=== PATIENT | female | born 1970 | race Caucasian/White ===

== ENCOUNTER → 2017-11-06 08:10 | Outpatient (CLI) | payer OTHER, SELFPAY ==
--- NOTE | 2017-11-06 08:16 | MM_ITS ---
MM Dig screening mamm BI w/CAD ORDERING PHYSICIAN : Heriberto Mayen MD PATIENT AGE: 47 years GENDER: Female COMPARISON: October 2014 and February 2010 bilateral mammogram INDICATION: ITS.REASON: SCREENING Family history Mother with breast cancer in her 60s TECHNIQUE: Standard CC and MLO images were obtained. R2 CAD reviewed. FINDINGS: The patient demonstrates areas of dense breast tissue bilaterally mammography is decreased sensitivity in breast of areas of increased density. Dense Breast tissue most evident towards lateral breast at upper-outer quadrant RIGHT BREAST:No no discrete findings. Only question a vague ovoid density labeled a at the lateral left breast. Labeled A. Doubt significance but would suggest ultrasound to further survey in this dense breast. Particularly in view of positive family history LEFT BREAST:There is suggestion of vague round density at the lateral left breast on cc view. Unlikely up to at least 12 mm diameter. Suspect persist the Ultrasound suggested to further survey both right and left breast given the dense breasts character and thus . There is also some small calcifications seen at or just beneath the skin towards the upper outer quadrant left breast. These could be within the skin, thus tangent and magnification views suggested here as well in the patient returns.. IMPRESSION 1. Dense breast bilaterally decreased sensitivity mammography.. Bilateral breast ultrasound suggested 2. Left breast. ... Suspect vague ovoid density laterally labeled X .Possible cyst. This & other areas of dense breast tissue would benefit from ultrasound survey ... Small cluster of likely benign punctate calcifications just at or beneath the skin upper-outer quadrant left breast. Recommend tangential and magnification views here, when patient returns as well (area labeled Z) 3. Right breast. ... Diffusely dense breast only questionable area at the medial breast on cc view. But survey ultrasound left breast but breast recommended as well to further evaluate areas of density. BI-RADS Category: 0 Need Additional Imaging Evaluaiton . RECOMMENDED FOLLOW-UP: IMM - IMMEDIATE FOLLOW-UP RECOMMENDED (A letter has been sent to the patient regarding results of the study.)
== END ==
PROVIDERS: Family Provider Family Medicine; PCP Family Medicine; Visit Provider Family Medicine
DX: Z12.31 Encounter for screening mammogram for malignant neoplasm of breast (principal)
CPT/HCPCS: 77067

== ENCOUNTER → 2017-11-25 12:41 | Outpatient (CLI) | payer OTHER, SELFPAY ==
--- NOTE | 2017-11-25 12:49 | US_ITS ---
MM Dig spot mag LT, US breast RT complete, US breast LT complete INDICATION: Follow-up abnormal screening study ORDERING PHYSICIAN: Heriberto Mayen MD PATIENT AGE: 47 years COMPARISON: 11/06/2017, 11/03/2014 TECHNIQUE: Magnification views and spot compression views along with bilateral breast ultrasound FINDINGS: There is dense fibroglandular tissue which decreases the sensitivity of mammography. The calcifications in the upper aspect of the left breast do not appear to be within the skin and are suspicious. Stereotactic directed biopsy is suggested. There are benign-appearing calcifications in the left breast as well. There is an area of asymmetric density in the outer aspect of the left breast. This does not appear to compress out but has a benign appearance. Left breast ultrasound: 3 mm cyst at 1:00, 7 mm cyst at 2:00, 1.7 x 1.5 cm cyst at 3:00 corresponding to the mammographic abnormality. 4 mm cyst at 6:00.. IMPRESSION: Suspicious calcifications in the upper outer left breast. Stereotactic biopsy suggested Asymmetric density left retroareolar region corresponds to a cyst BI-RADS Category: 4 Suspicious Abnormality-Biopsy Considered RECOMMENDED FOLLOW-UP: BIO - BIOPSY RECOMMENDED (A letter has been sent to the patient regarding results of the study.)
--- NOTE | 2017-11-25 16:02 | XR_ITS ---
XR chest 2V HISTORY: ITS.REASON: COUGH,SHORTNESS OF BREATH ORDERING PHYSICIAN: Heriberto Mayen MD PATIENT AGE: 47 years COMPARISON: 01/17/2009 FINDINGS: The cardiomediastinal silhouette and pulmonary vascularity are within normal limits. The lungs are clear without infiltrates, suspicious nodules, or pleural effusions. There is mild pectus deformity No acute bony abnormalities. IMPRESSION: No change with no acute finding
== END ==
PROVIDERS: PCP Family Medicine; Visit Provider Family Medicine
DX: R92.2 Inconclusive mammogram (principal)
CPT/HCPCS: 71046; 76641; 77065

== ENCOUNTER → 2017-12-02 10:34 | Outpatient (CLI) | payer OTHER, SELFPAY ==
--- NOTE | 2017-12-02 | MM_ITS ---
MM clip placement LT, MM stereotactic loc LT ORDERING PHYSICIAN: Manolo Beltre MD PATIENT AGE: 47 years Comparison: 11/25/2017 HISTORY: Breast calcifications PROCEDURE: The patient was given 1 mg of Xanax. The patient was placed on the stereotactic table and the abnormality was localized in the most appropriate projection. The breast was prepped in the routine manner, with sterile prep and the overlying skin anesthetized. A 3 to 4 mm skin incision was performed and the 9 gauge sorus vacuum-assisted core biopsy needle was advanced to the region of the calcification. Pre- and post fire images were obtained. After adequate positioning relative to the calcifications was ensured, multiple biopsies were obtained in the region of the calcifications specifically. The core biopsies obtained were sent for specimen mammography. After the calcifications were indeed identified on the specimen mammogram, the procedure was terminated. The patient tolerated the procedure well without complications. Specimen was sent for pathologic analysis which should be forthcoming within 3 working days. Routine follow-up phone call to patient is to be performed as well. A tiny titanium nonferromagnetic MicroMark was positioned through the mammotome needle into the biopsy site. 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 Excisional biopsy is recommended. SPECIMEN RADIOGRAPH: The mammographically evident calcifications from the prior study are currently evident within the Purnima dish and within the specimens obtained during mammotome procedure. This is considered an adequate specimen and the procedure was terminated. IMPRESSION: Successful removal of described breast calcifications. Left BREAST MAMMOGRAM: Compared to the prior study, the previously noted calcification have been removed. A small MicroMark clip was inserted into the region of the calcifications. There is evidence of soft tissue changes in the region of the biopsy was soft tissue gas and edema. IMPRESSION: 1. Adequate placement of the MicroMark clip postbiopsy. Management 2. Postbiopsy changes within the leftbreast. OVERALL ASSESSMENT: THE CALCIFICATIONS WITHIN THE LEFT BREAST DEMONSTRATES ATYPICAL DUCTAL HYPERPLASIA. EXCISIONAL BIOPSY IS RECOMMENDED
== END ==
PROVIDERS: PCP Family Medicine; Visit Provider Family Medicine
DX: R92.8 Other abnormal and inconclusive findings on diagnostic imaging of breast (principal)
CPT/HCPCS: 19081; 77065

== ENCOUNTER → 2018-08-23 13:51 | Outpatient (CLI) | payer OTHER, SELFPAY ==
[2018-08-23 14:30] VITALS: PULSE 73; PULSE 75
== END ==
PROVIDERS: PCP Family Medicine; Visit Provider Family Medicine
DX: R06.02 Shortness of breath (principal)
CPT/HCPCS: 94060; 94640

== ENCOUNTER → 2018-12-06 16:14 | Outpatient (CLI) | payer OTHER, SELFPAY ==
--- NOTE | 2018-12-06 16:17 | MM_ITS ---
PROCEDURE: MM DIG SCREENING MAMM BI W/CAD Patient Age:48Y CLINICAL INDICATION: SCREENING 48-year-old but no hormones no new complaints Family history: Mother breast cancer age 60 COMPARISON: DMDBAV DIG MAMM-DX BILAT W/ADD VIEWS from 02/14/2010 DMDB DIG MAMM-DX SANAZ from 11/03/2014 BR US BREAST-RT COMPLETE W/AXILLA from 11/03/2014 [facility] MM Dig screening mamm BI w/CAD from 11/06/2017 BREASTLT US breast LT complete from 11/25/2017 MAGLT MM Dig spot mag LT from 11/25/2017 CLIPLT MM clip placement LT from 12/02/2017 TECHNIQUE: Standard CC and MLO images were obtained. R2 CAD reviewed. FINDINGS: Moderate heterogeneous asymmetric breast pattern bilaterally, with areas of dense fibroglandular elements-. Decreased sensitivity of mammography within these areas of denser breast tissue Right breast: No new area of significant concern. Stable asymmetric areas of density. No discrete dominant new mass-again nodular difficult evaluate breast but follow-up 1 year on the right adequate. Left breast: Round density at the lateral left breast.. This is located towards 3 o'clock position is more evident on today's study-This likely reflects a cyst with at measuring over 13 mm AP x 17 mm height. (This is labeled X.). A cyst was previously identified at 3 o'clock on the previous 2018 ultrasound would seem to be likely account for this density; but I would suggest a follow-up since appears more evident and larger on today's MLO view. Superior to this on MLO view is a a nearly 9 mm round area which suspect reflect a probable cyst as well. IMPRESSION: LEFT mammogram Recommend ultrasound left breast along with spot views left breast (. Spot MLO, CC spot view along with full 90 degree view left breast) Slight progression, & enlargement of round density lateral left breast towards 3 o'clock, now measuring up to 17 mm height-suspect most likely enlarging cyst (cyst near this size at 3 o'clock position noted on 2018 ultrasound left breast) 9 mm round density superior to this on the MLO view. Likely a large cyst. Recommend ultrasound to further evaluate left breast additional axillary CC view right breast included RIGHT mammogram.: Follow-up 1 year Dense heterogeneous breast but overall appear stable with no significant new areas of concern BI-RAD Category: 0 Need Additional Imaging Evaluation FOLLOW-UP: IMM Immediate Follow-up Recommended (A letter has been sent to the patient regarding results of the study.) Dictated by: Luis Daniel Coyne MD 12/06/2018 19:30 Electronically signed by Luis Daniel Coyne MD in [place] 12/06/2018 19:32
== END ==
PROVIDERS: PCP Family Medicine; Visit Provider Family Medicine
DX: Z12.31 Encounter for screening mammogram for malignant neoplasm of breast (principal)
CPT/HCPCS: 77067

== ENCOUNTER → 2018-12-20 12:56 | Outpatient (CLI) | payer OTHER, SELFPAY ==
--- NOTE | 2018-12-20 13:00 | MM_ITS ---
PROCEDURE: MM DIG MAMM DX UNILAT LT CAD CLINICAL INDICATION: ABNORMAL MAMM COMPARISON: BREASTLT US breast LT complete from 11/25/2017 MAGLT MM Dig spot mag LT from 11/25/2017 CLIPLT MM clip placement LT from 12/02/2017 MM DIG SCREENING MAMM BI W/CAD from 12/06/2018 US BREAST LT COMPLETE from 12/20/2018 TECHNIQUE: Problem solving views of the left breast along with left breast ultrasound FINDINGS: Left mammogram: Average fibroglandular tissue. There is a rounded obscured nodule measuring 15 by 15 mm in the outer aspect of the left breast around the 3 o'clock position. There are benign-appearing calcifications laterally. Previously noted asymmetric density superior to this nodule appears to partially compress out having a similar appearance compared to 11/25/2017. Left breast ultrasound: At 1 o'clock there is a 5 mm cyst. At 2 o'clock there is a 7 mm cyst. At 3 o'clock there is a bilobular hypoechoic area measuring 2.6 by 2 cm. This has increased in size compared to 12/02/2017 and now has a bilocular component. This is hypoechoic and well-circumscribed with some enhanced through transmission of sound. There are low level internal echoes. There is a 6 mm cyst at 3 o'clock and an indeterminate 4 mm hypoechoic nodule at 6 o'clock. IMPRESSION: Enlarging hypoechoic bilobular lesion at 2 o'clock. This does have low level internal echoes. Due to the increase in size, would recommend biopsy.. Ultrasound-guided mammotome biopsy suggested. BI-RAD Category: 4 Suspicious Abnormality - Biopsy Considered FOLLOW-UP: BIO Biopsy Recommended (A letter has been sent to the patient regarding results of the study.) Dictated by: Kevon Reis MD 12/24/2018 12:51 Electronically signed by Kevon Reis MD in [place] 12/24/2018 12:54
== END ==
PROVIDERS: PCP Family Medicine; Visit Provider Family Medicine
DX: R92.8 Other abnormal and inconclusive findings on diagnostic imaging of breast (principal)
CPT/HCPCS: 76641; 77065

== ENCOUNTER → 2019-01-11 12:31 | Outpatient (CLI) | payer OTHER, SELFPAY ==
--- NOTE | 2019-01-11 13:14 | MM_ITS ---
PROCEDURE: MM DIG MAMM DX UNILAT LT CAD the CLINICAL INDICATION: BREAST MASS, follow-up cyst aspiration COMPARISON: CLIPLT MM clip placement LT from 12/02/2017 MM DIG SCREENING MAMM BI W/CAD from 12/06/2018 MM DIG MAMM DX UNILAT LT CAD from 12/20/2018 TECHNIQUE: Standard CC and MLO images were obtained. R2 CAD reviewed. FINDINGS: Dense fibroglandular tissue. Previously noted 15 mm nodule in the upper outer aspect of the left breast is no longer apparent having been aspirated. Biopsy clip is present in the upper outer aspect of the left breast.. Suggest 6 month follow-up per routine post biopsy protocol IMPRESSION: Benign findings. No evidence of malignancy BI-RAD Category: 2 Benign Finding(s) FOLLOW-UP: 6M 6Month Follow-up (A letter has been sent to the patient regarding results of the study.) Dictated by: Kevon Reis MD 01/18/2019 10:02 Electronically signed by Kevon Reis MD in [place] 01/18/2019 10:02
--- NOTE | 2019-01-11 13:14 | US_ITS ---
PROCEDURE: US FNA BREAST CLINICAL INDICATION: BREAST MASS COMPARISON: US BREAST LT COMPLETE from 12/20/2018 FINDINGS: There is a bilobed or bi lobular nodule at 3 o'clock in the right breast as previously described. This was targeted for ultrasound. Following time-out and obtaining informed consent under aseptic conditions and local anesthesia with 1 percent buffered lidocaine, 21 gauge needle was inserted into the larger of the 2 collections. A small amount somewhat thick creamy fluid was aspirated and sent to cytology. This was labeled as 2 o'clock. Adjacent to this was an additional collection which was aspirated at 3 o'clock both sent to cytology in both nearly completely aspirated. Cytology 2 o'clock: Negative for malignant cells Cytology 3 o'clock, negative for malignant cells both suggestive cysts with occasional macrophages. No atypia or malignancy evident. IMPRESSION: Status post FNA of the 2 suspicious nodules at 2 and 3 o'clock both showing benign findings. Dictated by: Kevon Reis MD 01/18/2019 09:58 Electronically signed by Kevon Reis MD in [place] 01/18/2019 09:58
== END ==
PROVIDERS: PCP Family Medicine; Visit Provider Family Medicine
DX: D48.62 Neoplasm of uncertain behavior of left breast (principal)
CPT/HCPCS: 10005; 76942; 77065

== ENCOUNTER 2020-08-14 10:07 | Emergency (ER) | payer OTHER, SELFPAY ==
[2020-08-14] VITALS (9 sets, daily range): BP systolic 97–127; BP diastolic 53–82; PULSE 67–85; RESP 16–20; TEMP 36.6–36.9; O2SAT 97–98; BMI 22.0
--- NOTE | 2020-08-14 10:14 | ECG_ITS ---
APPROVED REPORT Exam: Resting ECG HR:73 bpm ECG Measurements Heart Rate 73 AXES OK 122 P 87 QRSd 80 QRS 78 QT 376 T 61 QTc 414 Conclusion Normal sinus rhythm Late r wave progression Abnormal ECG Electronically signed by : Rishabh Daniel, 08/14/2020 19:49:26
--- NOTE | 2020-08-14 10:22 | XR_ITS ---
PROCEDURE: XR CHEST PORTABLE CLINICAL HISTORY: chest pain COMPARISON: DX CXR2V XR chest 2V from 11/25/2017 FINDINGS: The cardiomediastinal silhouette and pulmonary vascularity are within normal limits. The lungs are clear without infiltrates, suspicious nodules, or pleural effusions. Minimal upper thoracic curvature convex left and lower thoracic curvature convex right IMPRESSION: No acute findings. Dictated by: Kevon Reis MD 08/14/2020 11:00 Kevon Reis MD in [place] 08/14/2020 11:00
[2020-08-14 10:31] LABS: Basophils % 0.4 % (0.1-2.0); Eosinophils # 0.2 K/mm3 (0.0-0.4); Eosinophils % 4.1 % (0.1-12.0); Hematocrit 39.7 % (37.0-47.0); Lymphocytes # 1.2 K/mm3 (0.7-4.5); Lymphocytes % 23.1 % (10-50); Mean Corpuscular HGB Conc 32.9 g/dL (31.8-35.4); Mean Corpuscular Volume 91.2 fl (81-99); Mean Platelet Volume 9.3 fl (7.4-10.4); Monocytes # 0.2 K/mm3 (0.1-1.0); Monocytes % 4.9 % (1.7-9.3); Neutrophils # 3.3 K/mm3 (1.8-7.8); Neutrophils % 67.5 % (37.0-80.0); Platelet Count 172 K/mm3 (142-424); Red Blood Count 4.35 M/mm3 (4.20-5.40); Red Cell Distribution Width 12.6 % (11.5-17.5)
--- NOTE | 2020-08-14 10:36 | HMH.EDGENADL ---
ED Disposition Clinical Impression: Chest pain, atypical Disposition: Home, Self-Care Condition on Discharge: Fair Instructions: DI for Atypical Chest Pain Additional Instructions: Activity as tolerated bland diet if symptoms recur return to emergency room for further evaluation otherwise follow-up with cardiology as directed. Follow up with Cardiology office 08/16/20 () at 9am Referrals: Heriberto Mayen MD [Primary Care Provider] - Time of Disposition: 13:41 - Critical Care Critical Care Time: No Attestation: On 08/14/20, the high probability of a clinically significant, sudden or life threatening deterioration of the following system(s) required my full and direct attention, intervention and personal management. The time I documented below is in addition to time spent performing reported procedures but includes the following listed in this critical care notation. Medical Decision Making - Medical Records Medical records reviewed: Yes: I reviewed the patient's medical records. - Rk Inquiry Pt receiving controlled substance: No Vital Signs: 08/14/20 10:08 08/14/20 10:30 08/14/20 11:00 Temperature 98.5 F Temperature Source Oral Pulse Rate 85 71 Pulse Rate [Radial] 84 Respiratory Rate 16 Blood Pressure 127/82 115/74 Blood Pressure [Right Arm] 124/71 Blood Pressure Mean Blood Pressure Mean [Right Arm] 88 Blood Pressure Position Sitting Sitting Blood Pressure Position [Right Arm] Sitting 02 Sat by Pulse Oximetry 98 97 97 Oxygen Delivery Method Room Air Room Air Room Air 08/14/20 11:30 08/14/20 12:00 08/14/20 12:30 Temperature Temperature Source Pulse Rate 73 69 67 Pulse Rate [Radial] Respiratory Rate 18 20 Blood Pressure 115/68 105/58 L 98/53 L Blood Pressure [Right Arm] Blood Pressure Mean 69 63 Blood Pressure Mean [Right Arm] Blood Pressure Position Sitting Blood Pressure Position [Right Arm] 02 Sat by Pulse Oximetry 97 97 Oxygen Delivery Method 08/14/20 13:00 08/14/20 13:30 Temperature Temperature Source Pulse Rate 67 68 Pulse Rate [Radial] Respiratory Rate 18 18 Blood Pressure 97/57 L 99/59 L Blood Pressure [Right Arm] Blood Pressure Mean 66 70 Blood Pressure Mean [Right Arm] Blood Pressure Position Blood Pressure Position [Right Arm] 02 Sat by Pulse Oximetry Oxygen Delivery Method - Lab Data Lab results reviewed: Yes: I reviewed the patient's lab results. Lab Results 08/14/20 10:20: WBC 5.0, RBC 4.35, Hgb 13.0, Hct 39.7, MCV 91.2, MCH 30.0, MCHC 32.9, RDW 12.6, Plt Count 172, MPV 9.3, Neut % (Auto) 67.5, Lymph % (Auto) 23.1, [place] % (Auto) 4.9, Eos % (Auto) 4.1, Baso % (Auto) 0.4, Neut # (Auto) 3.3, Lymph # (Auto) 1.2, [place] # (Auto) 0.2, Eos # (Auto) 0.2, Baso # (Auto) 0.0 08/14/20 10:20: Sodium 135 L, Potassium 4.1, Chloride 105, Carbon Dioxide 28, Anion Gap 6.1, BUN 17, Creatinine 0.80, Estimated Creat Clear 86, Estimated GFR 76, Est GFR ( Amer) 92, Glucose 67 L, Calcium 9.2, Troponin I < 0.01, Amylase 66 08/14/20 10:20: Total Bilirubin 0.6, Direct Bilirubin 0.2, Conjugated Bilirubin 0.0, Indirect Bilirubin 0.4, Unconjugated Bilirubin 0.4, AST 26, ALT 15, Alkaline Phosphatase 60, Total Protein 6.8, Albumin 4.2, Lipase 79 08/14/20 11:32: POC Glucose 117 H 08/14/20 12:44: Troponin I < 0.01 Result diagrams: 08/14/20 10:20 08/14/20 10:20 Orders (Tests/Meds): ED MEDICATIONS Discontinued Medications Generic Name Dose Route Start Last Admin Trade Name Santiagoq PRN Reason Stop Dose Admin Aspirin 324 mg 08/14/20 10:28 08/14/20 10:29 Aspirin 81mg Chewable Tablet PO 08/14/20 10:29 324 mg ONCE ONE Administration ORDERS Category Date Time Status Troponin I Q3H Lab 08/14/20 16:30 Ordered - ECG Data Tracing #1 I reviewed this ECG and interpreted as documented below: ECG initial impression date: 08/14/20 (EKG is normal sinus rhythm no previous EKG available possible old se
[2020-08-14 10:40] LABS: Alanine Aminotransferase 15 U/L (12-78); Albumin Level 4.2 g/dl (3.5-5.0); Alkaline Phosphatase 60 U/L (38-126); Aspartate Amino Transferase 26 U/L (14-36); Bilirubin,Direct 0.2 mg/dl (0.0-0.4); Bilirubin,Indirect 0.4 mg/dL (0.0-0.9); Bilirubin,Total 0.6 mg/dl (0.2-1.3); Bilirubin,Unconjugated 0.4 mg/dL (0.0-1.1); Lipase 79 U/L (23-300); Total Protein,Serum 6.8 g/dl (6.3-8.2)
[2020-08-14 10:41] LABS: Amylase 66 U/L (30-110); Anion Gap 6.1 mEq/L (5-15); Blood Urea Nitrogen 17 mg/dl (7-17); Calcium 9.2 mg/dl (8.4-10.2); Carbon Dioxide 28 mmol/L (22.0-30.0); Chloride 105 mmol/L (98-107); Creatinine Clearance Estimated 86 mL/min (50-200); Estimated Glomerular Filt Rate 76 ml/min (>60); GFR (African American) 92 ML/MIN (>60); Glucose 67 mg/dl (74-100); Potassium 4.1 mmoL/L (3.5-5.1); Sodium 135 mmol/L (136-145)
[2020-08-14 10:53] LABS: Troponin I < 0.01 ng/ml (0.00-0.034)
--- NOTE | 2020-08-14 11:34 | PC.NURSE ---
accucheck 117. pt continues to c/o fatique and not feeling well
--- NOTE | 2020-08-14 11:38 | PC.NURSE ---
pt up to bathroom ambulating with steady gait. offers no c/o at present
[2020-08-14 11:40] LABS: POC Glucose,Bedside 117 (70-110)
--- NOTE | 2020-08-14 11:42 | PC.NURSE ---
they are sending mandeep over from the cardiology clinic to see pt
--- NOTE | 2020-08-14 11:52 | PC.NURSE ---
barry kaufman for cardiology at [facility]
--- NOTE | 2020-08-14 12:05 | PC.NURSE ---
per mandeep,shop assistant with cardiology if pt second troponin is negative for pt to follow up with cardiology office this week.
--- NOTE | 2020-08-14 12:16 | HMH.CNCARD ---
History of Present Illness Consult date: 08/14/20 Requesting physician: Rod Robert Consult reason: chest pain Chief complaint: chest pain History of present illness: 50-year-old female presented to the ED with complaints of chest pain that occurred last evening. Patient states after doing her daily yoga she began having midsternal chest pain radiating to the back. Patient stated it felt as though her chest was squeezing. Patient states this lasted for an hour and a half then resolved on own. Patient states she did take Tums which did not relieve the pain. Patient denies shortness of breath with episode of chest pain. Patient has no history of coronary artery disease. Patient denies chest pain, tightness or pressure today. Patient states she was just concerned because she is never had this squeezing in her chest before. Patient denies shortness of breath with exertion. Patient does do yoga every day. Patient denies swelling of the lower extremities. Patient states she has been fatigue since this episode of chest pain. Patient does complain of palpitations especially at night. Patient states she has had these palpitations at night for very long time. States she had been evaluated by Dr. Jo in the past for the palpitations. She is uncertain as to the reason for the palpitations. Patient does have history of hypotension. Patient does have history of COPD. Patient states she was a smoker and did quit smoking 10 years ago. Significant family history of father having myocardial infarction's x3 with having stents placed several years ago. Vital signs are stable. Patient denies cough, fever nausea or vomiting. Initial ED work-up was performed. EKG reveals normal sinus rhythm, septal infarct, abnormal ECG with a heart rate of 73 bpm. Serial troponins are being obtained. Troponin x1 negative. CBC and BMP unremarkable. Patient was noted to have low glucose level at 67. Patient was giving peanut butter and juice at that time. Discussed plan of care with Dr. Fernandes. Will obtain second troponin. If second troponin is negative patient may be discharged home. Patient is to follow-up with cardiology this week or sooner if signs and symptoms persist or develop. Will obtain GXT Myoview and echocardiogram at cardiology follow-up on an outpatient basis. Please notify cardiology if second troponin comes back positive. Please notify cardiology if any changes in patient status. Thank you for allowing cardiology to participate in the care of this patient. [facility] History I have reviewed the patient's past medical history: Yes Medical History: Reports:: Arrhythmia, Palpitations Denies:: Heart Murmur *Have you ever received a pneumonia vaccine?: No *Have you received a flu vaccine this season?: Yes Other Surgeries: Yes: , Other Amputation: No Fractures: No - *Social History Last grade of school completed: High school graduate Smoking Status: Former smoker Alcohol Intake: never *Occupational Status:: employed *Travel in the last 8 weeks: None Family Hx:: Cancer, Coronary Artery Disease Meds Home Medications Medication Instructions Recorded Confirmed Type PARoxetine HCL [Paxil 10mg Tablet] 10 mg PO DAILY 08/14/20 08/14/20 History Allergies Allergy/AdvReac Type Severity Reaction Status Date / Time No Known Allergies Allergy Verified 08/14/20 10:21 Exam Vital signs and Labs for Last 24 Hours: Temp Pulse Resp BP Pulse Ox 98.5 F 73 16 115/68 97 08/14/20 10:08 08/14/20 11:30 08/14/20 10:08 08/14/20 11:30 08/14/20 11:00 Laboratory Results - last 24 hr 08/14/20 10:20: WBC 5.0, RBC 4.35, Hgb 13.0, Hct 39.7, MCV 91.2, MCH 30.0, MCHC 32.9, RDW 12.6, Plt Count 172, MPV 9.3, Neut % (Auto) 67.5, Lymph % (Auto) 23.1, [place] % (Auto) 4.9, Eos % (Auto) 4.1, Baso % (Auto) 0.4, Neut # (Auto) 3.3, Lymph # (Auto) 1.2, [place] # (Auto) 0.2, Eos # (Auto) 0.2, Baso # (Auto) 0.0 08/14/20 10:20:
[2020-08-14 13:17] LABS: Troponin I < 0.01 ng/ml (0.00-0.034)
--- NOTE | 2020-08-14 13:34 | PC.NURSE ---
follow up appointment made for pt in cardiology office- August at 9am
== END 2020-08-14 13:49 | disposition home or self-care (01) ==
PROVIDERS: Emergency Provider Emergency Medicine; PCP Family Medicine
DX: R07.89 Other chest pain (principal); R00.2 Palpitations
CPT/HCPCS: 71045; 80048; 80076; 82150; 82962; 83690; 84484; 85025; 93005; 99282

== ENCOUNTER → 2020-08-27 07:04 | Outpatient (CLI) | payer OTHER, SELFPAY ==
--- NOTE | 2020-08-27 07:07 | CA_ITS ---
APPROVED REPORT EXAM: Comprehensive 2D, Doppler, and color-flow Echocardiogram Medical Staff Manager: Yanely Grider RVT Ht: 5 ft 8 in Wt: 148lbs BSA: 1.80 BP: 110/76 mmHg Indications: SOA,CP,COPD,PALPS,FATIGUE,EX SMOKER,DIZZINESS 2D Dimensions LVOT 2.02 cm (M/F) 1.5-2.5 LA Volume 31.50 mL LA Volume Index 17.59 mL/m2 (M/F) 16-34 M-Mode Dimensions RVDd 2.29 cm (0.9-2.6) LA Diam 2.76 cm (1.9-4.0) LVDd 4.35 cm (3.5-5.7) Ao Diam 2.73 cm (2.0-3.7) LVDs 2.97 cm (3.5-5.7) IVSd 0.41 cm (0.6-1.1) PWd 0.56 cm (0.6-1.1) EF (Teich) 60.00% FS 31.70% EDV (Teich) 85.40 mL TAPSE 2.55 (<1.7) ESV (Teich) 34.20 mL LV Diastology E Decel Time 280.00 (160-240 msec) E/A Ratio 1.3 MED E' 10.20 (< 7 cm/sec) E'/MED E' Ratio 5.88 (>14) LAT E' 15.40 (<10 cm/sec) E/LAT E' Ratio 3.90 (>14) Aortic Valve AO Peak GR. 3.80 mmHg Mitral Valve MV E Max Angel. 60.00 (40-130 cm/s) MV A Velocity 46.00 (40-130 cm/s) E/A Ratio 1.31 MV Decel. Time 280.00 (160-240 ms) MV PHT 82.00 ms Pulmonary Valve PV Peak Velocity 68.00 (50-150 cm/s) Tricuspid Valve TR P. Velocity 206.00 cm/s RAP Estimate 10.00 mmHg RVSP 27.00 mmHg Left Ventricle Left atrium is normal size, left ventricle is normal size, there is no concentric left ventricular hypertrophy, visually estimated ejection fraction 55% with no regional wall motion abnormality, diastolic parameters are within normal range. Right Ventricle Right atrium and right ventricle are normal size and contractility. Aortic Valve Aortic valve is minimally thickened and fibrosed, there is no aortic stenosis or aortic insufficiency. Mitral Valve Mitral valve grossly normal, there is trace mitral regurgitation. Tricuspid Valve Tricuspid grossly normal, there is trace tricuspid regurgitation. Pulmonic Valve Pulmonic valve is poorly visualized. Great Vessels Aortic root is normal size. Pericardium Trivial pericardial effusion noted. Conclusion 1. Normal left ventricular size, preserved left ventricular systolic function, visually estimated ejection fraction 55% with no regional wall motion abnormality, diastolic parameters are within normal range. 2. Trace mitral and tricuspid regurgitation. 3. Trivial pericardial effusion noted, inferior vena cava is mildly dilated with normal inspiratory collapse. Electronically signed by : Valentín Rogers, 08/27/2020 20:17:11
== END ==
PROVIDERS: PCP Family Medicine; Visit Provider Internal Medicine Cardiovascular Disease
DX: R07.89 Other chest pain (principal); R42 Dizziness and giddiness; R94.31 Abnormal electrocardiogram [ECG] [EKG]; R00.2 Palpitations; R53.83 Other fatigue; Z82.49 Family history of ischemic heart disease and other diseases of the circulatory system; Z87.891 Personal history of nicotine dependence
CPT/HCPCS: 93306

== ENCOUNTER → 2020-09-05 07:14 | Outpatient (CLI) | payer SELFPAY ==
--- NOTE | 2020-09-05 07:15 | CT_ITS ---
PROCEDURE: CT HEART W CALCIUM SCORE CLINICAL HISTORY: cp COMPARISON: No exams were available for comparison TECHNIQUE: Axial images obtained with sagittal and coronal reformats. All CT scans at the facility use one or more dose reduction, viz: automated exposure control, ma/kV adjustment per patient size (including targeted exams where dose is matched to indication, i.e. head), or iterative reconstruction technique. FINDINGS: Total coronary artery calcium score is 0. No identifiable calcific atherosclerotic plaque with very low cardiovascular disease risk. There is mild pericardial thickening measuring up to 7 mm posteriorly.. Minimal scarring in the lung bases. There are 2 small nodules in the left lower lobe at 4 mm each IMPRESSION: No identifiable calcific atherosclerotic plaque with very low cardiovascular disease risk Mild pericardial thickening Two noncalcified nodules in the left lower lobe at 4 mm. Suggest 6 month follow-up. Dictated by: Kevon Reis MD 09/06/2020 09:11 Kevon Reis MD in [facility] 09/06/2020 09:11
== END ==
PROVIDERS: PCP Family Medicine; Visit Provider Internal Medicine Cardiovascular Disease
DX: Z13.6 Encounter for screening for cardiovascular disorders (principal); R07.89 Other chest pain; R00.2 Palpitations; R42 Dizziness and giddiness; R53.83 Other fatigue; R94.31 Abnormal electrocardiogram [ECG] [EKG]; Z82.49 Family history of ischemic heart disease and other diseases of the circulatory system; Z87.891 Personal history of nicotine dependence
CPT/HCPCS: 75571

== ENCOUNTER → 2020-09-06 08:35 | Outpatient (CLI) | payer OTHER, SELFPAY ==
[2020-09-06 09:33] LABS: Bilirubin,Unconjugated 0.1 mg/dL (0.0-1.1)
[2020-09-06 09:34] LABS: Alanine Aminotransferase 12 U/L (12-78); Albumin Level 3.9 g/dl (3.5-5.0); Alkaline Phosphatase 57 U/L (38-126); Aspartate Amino Transferase 23 U/L (14-36); Bilirubin,Direct 0.1 mg/dl (0.0-0.4); Bilirubin,Indirect 0.2 mg/dL (0.0-0.9); Bilirubin,Total 0.3 mg/dl (0.2-1.3); Chol/HDL Ratio 1.8 (1-3.5); Cholesterol 153 mg/dl (140-200); HDL Cholesterol 87 mg/dl (40-60); Total Protein,Serum 6.4 g/dl (6.3-8.2); Triglycerides 50 mg/dl (30-150); VLDL Cholesterol 10 mg/dL (0-40)
[2020-09-06 09:57] LABS: Direct LDL Cholesterol 54.28 mg/dL (100-129)
== END ==
PROVIDERS: Visit Provider Internal Medicine Cardiovascular Disease
DX: R00.2 Palpitations (principal); R07.89 Other chest pain; R42 Dizziness and giddiness; R53.83 Other fatigue; R94.31 Abnormal electrocardiogram [ECG] [EKG]; Z82.49 Family history of ischemic heart disease and other diseases of the circulatory system; Z87.891 Personal history of nicotine dependence
CPT/HCPCS: 36415; 80061; 80076

== ENCOUNTER → 2020-11-27 07:12 | Outpatient (CLI) | payer OTHER, SELFPAY ==
--- NOTE | 2020-11-27 07:12 | CT_ITS ---
PROCEDURE: CT CHEST WO CON CLINICAL INDICATION: Lung nodule COMPARISON: CT CT HEART W CALCIUM SCORE from 09/05/2020 TECHNIQUE: Axial images obtained with sagittal and coronal reformats. All CT scans at the facility use one or more dose reduction, viz: automated exposure control, ma/kV adjustment per patient size (including targeted exams where dose is matched to indication, i.e. head), or iterative reconstruction technique. FINDINGS: HEART AND MEDIASTINAL STRUCTURES: No mediastinal or hilar mass or adenopathy. There is mild thickening of the pericardium measuring up to 15 mm in thickness in the inferior aspect of the heart consistent with small pericardial effusion which has increased since 09/05/2020. LUNGS AND PLEURAL SPACES: 4 mm noncalcified nodule right middle lobe image 3/42 3 mm subpleural nodule right lung base along the hemidiaphragm posteriorly image 3/72. 7 mm subpleural nodule right lower lobe posteriorly image 3/60. 5 mm noncalcified nodule right lower lobe superior segment image 3/46. Atelectatic or fibrotic changes in the left lung base. 5 mm subpleural nodule left lower lobe image 3/65. 4 mm nodule left lower lobe image 3/59. No effusions or infiltrates. BONY STRUCTURES: No acute bony abnormalities apparent. UPPER ABDOMEN: Unremarkable. ADDITIONAL FINDINGS: No other significant abnormalities. IMPRESSION: 1. Mild thickening of the pericardium slightly increased in size from the previous study suggesting small pericardial effusion. 2. There are numerous noncalcified pulmonary nodules the nodules previously noted on the coronary artery CT are not significantly changed. The other nodules were not imaged on that exam. Continued six-month follow-up is suggested. These nodules could be postinflammatory or related to old granulomatous infection. There are few calcified hilar lymph nodes present. Cannot exclude a neoplastic process. Dictated by: Kevon Reis MD 11/28/2020 11:36 Kevon Reis MD in [facility] 11/28/2020 11:36
[2020-11-27 08:15] VITALS: PULSE 57; PULSE 62
== END ==
LOC: RAD 07:12
PROVIDERS: PCP Family Medicine; Visit Provider Internal Medicine Pulmonary Disease
DX: R91.8 Other nonspecific abnormal finding of lung field (principal)
CPT/HCPCS: 71250; 94060; 94640; 94727; 94729

== ENCOUNTER → 2021-06-03 12:58 | Outpatient (CLI) | payer OTHER, SELFPAY ==
--- NOTE | 2021-06-03 12:58 | CT_ITS ---
FINAL REPORT TECHNIQUE: Axial images were obtained through the chest without contrast. This study was performed with techniques to keep radiation doses as low as reasonably achievable (ALARA). Individualized dose reduction techniques using automated exposure control or adjustment of mA and/or kV according to the patient's size were employed. CLINICAL HISTORY: lung nodule COMPARISON: November 27, 2020 FINDINGS: The heart size is normal. There is no pericardial or pleural effusion. Limited images of the upper abdomen are unremarkable. There are several ground-glass opacities in the right upper lobe measuring up to 8 mm and are well seen on image 52 of series 3. There is a nodule in the periphery of the right middle lobe measuring 4 mm and well seen on image 38 of series 3. There is an ovoid nodule in the posterior right lower lobe measuring 6 mm well seen on image 58 series 3. There is a pleural based nodule in the posterior right lower lobe measuring 7 mm well seen on image 101 of series 3. There is a pleural based nodule in the periphery of the left lower lobe measuring 4 mm seen on image 102 of series 3. There is a 4 mm nodule in the periphery of the right lower lobe seen on image 85 series 3. All of these nodules are stable from the previous exam. No new solid nodules are identified. IMPRESSION: No new solid nodules identified. Subtle ground-glass opacities in the right upper lobe, favored to be inflammatory. Recommend follow-up CT in 3 months. Reviewed, Interpreted and Dictated by Aubrey Carter MD Transcribed by Lili Styles Authenticated by Aubrey Carter MD on 06/03/2021 04:28:09 PM [facility]
== END ==
PROVIDERS: PCP Family Medicine; Visit Provider Internal Medicine Pulmonary Disease
DX: R91.1 Solitary pulmonary nodule (principal)
CPT/HCPCS: 71250

== ENCOUNTER 2021-08-12 10:23 | Emergency (ER) | payer OTHER, SELFPAY ==
[2021-08-12 10:24] VITALS: PULSE 90; RESP 19; TEMP 37; O2SAT 98; BMI 23.7
--- NOTE | 2021-08-12 10:36 | HMH.EDGENADL ---
ED Disposition Clinical Impression: Seroma after procedure Disposition: Home, Self-Care Condition on Discharge: Good Referrals: Heriberto Mayen MD [Primary Care Provider] - - Critical Care Critical Care Time: No Attestation: On 08/12/21, the high probability of a clinically significant, sudden or life threatening deterioration of the following system(s) required my full and direct attention, intervention and personal management. The time I documented below is in addition to time spent performing reported procedures but includes the following listed in this critical care notation. Medical Decision Making - Medical Records Medical records reviewed: Yes: I reviewed the patient's medical records. - Rk Inquiry Pt receiving controlled substance: No Vital Signs: 08/12/21 10:24 Temperature 98.6 F Temperature Source Oral Pulse Rate [Right Radial] 90 Respiratory Rate 19 02 Sat by Pulse Oximetry 98 Oxygen Delivery Method Room Air - Lab Data Lab results reviewed: Yes: I reviewed the patient's lab results. Lab Results 08/12/21 11:35: WBC 4.3 L, RBC 4.25, Hgb 13.4, Hct 39.7, MCV 93.4, MCH 31.6 H, MCHC 33.8, RDW 12.9, Plt Count 263, MPV 8.4, Neut % (Auto) 58.5, Lymph % (Auto) 27.7, [place] % (Auto) 6.2, Eos % (Auto) 5.0, Baso % (Auto) 2.6 H, Neut # (Auto) 2.5, Lymph # (Auto) 1.2, [place] # (Auto) 0.3, Eos # (Auto) 0.2, Baso # (Auto) 0.1 08/12/21 11:35: Sodium 136, Potassium 4.0, Chloride 105, Carbon Dioxide 25, Anion Gap 10.0, BUN 13, Creatinine 0.60, Estimated Creat Clear 123, Estimated GFR 105, Est GFR ( Amer) 127, Glucose 98, Calcium 9.2, Total Bilirubin 0.3, AST 35, ALT 24, Alkaline Phosphatase 70, C-Reactive Protein 0.8, Total Protein 6.7, Albumin 4.2, Globulin 2.5, Albumin/Globulin Ratio 1.7 Result diagrams: 08/12/21 11:35 08/12/21 11:35 Orders (Tests/Meds): ED MEDICATIONS Discontinued Medications Generic Name Dose Route Start Last Admin Trade Name Cr PRN Reason Stop Dose Admin Acetaminophen 1,000 mg 08/12/21 10:55 08/12/21 11:27 Acetaminophen 500mg Tab PO 08/12/21 10:56 1,000 mg ONCE ONE Administration Ketorolac Tromethamine 15 mg 08/12/21 10:55 08/12/21 11:27 Ketorolac 30mg/Ml Vial IV 08/12/21 10:56 15 mg ONCE ONE Administration Oxycodone HCl 5 mg 08/12/21 10:55 08/12/21 11:27 Oxycodone 5mg Immediate Release Tablet PO 08/12/21 10:56 5 mg ONCE ONE Administration Medical Decision Narrative: Is a 51-year-old s/p bilateral mastectomy presenting for chief complaint of feeling accumulation and worsening pain in surgical sites. Differential diagnosis includes, but is not limited to, infection, hematoma, seroma, other. Initial exam, patient is hemodynamically stable and nontoxic-appearing. She was evaluate CBC, CMP, CRP and treated with p.o. Tylenol, IV Toradol and p.o. oxycodone. On reassessment, patient reports improvement in her symptoms. I spoke with patient's surgeon who advised to drain the bilateral seromas and and patient follow-up in clinic on Thursday. Lab work is unremarkable and does not show evidence of infection. Sites also do not clinically look infected. Needle aspiration was performed bilaterally and patient's breasts with relief in symptoms. She was advised to continue watching out for signs of infection and was discharged in a stable condition. General Adult HPI - General Stated complaint: post op 07/29, fluid buildup Time Seen by Provider: 08/12/21 10:35 - History of Present Illness HPI narrative: Cora is a 51yo with pmhx significant for prophylactic double mastectomy [address] Erica Vasquez at [facility] is presenting for chief complaint of bilateral seromas and increasing pain. Patient states she got her SHU drains out on and reports increasing accumulation of fluid and increasing pain. She denies any fever, drainage, worsening erythema or other systemic symptoms. She states her surgeon advised
--- NOTE | 2021-08-12 11:01 | PC.NURSE ---
Called [facility] for Surgeon consult
[2021-08-12 11:43] LABS: Basophils # 0.1 K/mm3 (0-0.2); Basophils % 2.6 % (0.1-2.0); Eosinophils # 0.2 K/mm3 (0.0-0.4); Hematocrit 39.7 % (37.0-47.0); Hemoglobin 13.4 g/dL (12.2-16.2); Lymphocytes # 1.2 K/mm3 (0.7-4.5); Lymphocytes % 27.7 % (10-50); Mean Corpuscular HGB Conc 33.8 g/dL (31.8-35.4); Mean Corpuscular Hemoglobin 31.6 pg (27.0-31.2); Mean Corpuscular Volume 93.4 fl (81-99); Mean Platelet Volume 8.4 fl (7.4-10.4); Monocytes # 0.3 K/mm3 (0.1-1.0); Monocytes % 6.2 % (1.7-9.3); Neutrophils # 2.5 K/mm3 (1.8-7.8); Neutrophils % 58.5 % (37.0-80.0); Platelet Count 263 K/mm3 (142-424); Red Blood Count 4.25 M/mm3 (4.20-5.40); Red Cell Distribution Width 12.9 % (11.5-17.5); White Blood Count 4.3 K/mm3 (4.8-10.8)
[2021-08-12 11:50] LABS: Alanine Aminotransferase 24 U/L (12-78); Albumin Level 4.2 g/dl (3.5-5.0); Albumin/Globulin Ratio 1.7 (1.1-1.8); Alkaline Phosphatase 70 U/L (38-126); Aspartate Amino Transferase 35 U/L (14-36); Bilirubin,Total 0.3 mg/dl (0.2-1.3); Blood Urea Nitrogen 13 mg/dl (7-17); Calcium 9.2 mg/dl (8.4-10.2); Carbon Dioxide 25 mmol/L (22.0-30.0); Chloride 105 mmol/L (98-107); Creatinine Clearance Estimated 123 mL/min (50-200); Estimated Glomerular Filt Rate 105 ml/min (>60); GFR (African American) 127 ML/MIN (>60); Globulin 2.5 g/dL (1.3-3.2); Glucose 98 mg/dl (74-100); Sodium 136 mmol/L (136-145); Total Protein,Serum 6.7 g/dl (6.3-8.2)
[2021-08-12 11:56] LABS: C-Reactive Protein 0.8 mg/L (0-4)
--- NOTE | 2021-08-12 12:09 | PC.NURSE ---
speaking with Dr Nickie Rodriguez from [facility]
[2021-08-12 13:23] VITALS: BP 109/74; PULSE 74; RESP 16; TEMP 36.6; O2SAT 98
== END 2021-08-12 13:24 | disposition home or self-care (01) ==
PROVIDERS: Emergency Provider Emergency Medicine; PCP Family Medicine
DX: M96.843 Postprocedural seroma of a musculoskeletal structure following other procedure (principal); R00.2 Palpitations; K21.9 Gastro-esophageal reflux disease without esophagitis; R91.1 Solitary pulmonary nodule; J44.9 Chronic obstructive pulmonary disease, unspecified; Z79.51 Long term (current) use of inhaled steroids; Z79.899 Other long term (current) drug therapy; Z87.891 Personal history of nicotine dependence
CPT/HCPCS: 10021; 10004; 80053; 85025; 86140; 96374; 99284

== ENCOUNTER → 2022-06-20 12:52 | Outpatient (CLI) | payer OTHER, SELFPAY ==
--- NOTE | 2022-06-20 12:58 | CT_ITS ---
FINAL REPORT TECHNIQUE: Axial CT images of the chest were obtained without contrast. Low-dose protocol was utilized. This study was performed with techniques to keep radiation doses as low as reasonably achievable (ALARA). Individualized dose reduction techniques using automated exposure control or adjustment of mA and/or kV according to the patient's size were employed. CLINICAL HISTORY: lung cancer screening, former smoker, quit 10 yrs ago, smoked 2 pks per day x 30 yrs COMPARISON: CT chest 06/03/2021 FINDINGS: CT CHEST WITHOUT, LOW DOSE SCREENING CT Di Vol: 2.90 mGy DLP: 111.51 mGy*cm There is no axillary, mediastinal, or hilar adenopathy. The heart size is normal. There is no pleural or pericardial effusion. The lung windows show a multitude of bilateral pulmonary nodules as described previously, all stable. No new nodules identified. There is a ground-glass opacity in the right upper lobe seen on image 22 series 4 which is stable. Limited images of the upper abdomen remarkable. IMPRESSION: LR Category 2: 12 month follow-up low-dose chest CT is recommended. Reviewed, Interpreted and Dictated by Aubrey Carter MD Transcribed by Lucretia Molina Authenticated and [facility]
== END ==
PROVIDERS: PCP Family Medicine; Visit Provider Internal Medicine Pulmonary Disease
DX: Z87.891 Personal history of nicotine dependence (principal); Z12.2 Encounter for screening for malignant neoplasm of respiratory organs
CPT/HCPCS: 71271

== ENCOUNTER 2023-09-11 07:31 | Day surgery (SDC) | payer OTHER, SELFPAY ==
[2023-09-10 11:18] VITALS: BMI 26.6
[2023-09-11 07:54] VITALS: BP 111/55; PULSE 79; RESP 18; TEMP 36.4; O2SAT 99
[2023-09-11] MEDS: LACTATED RINGERS 1000ML 1,000 ML 25 ML IV (07:59)
[2023-09-11 08:25] VITALS: O2SAT 100
--- NOTE | 2023-09-11 08:42 | EXP.ANES.CKL ---
[facility] Disclaimer: The information contained in this section may have been updated after the patient was seen, as this information can be updated by other users. Medical History Calcified lymph nodes Mild intermittent asthma Multiple pulmonary nodules Stopped smoking with greater than 30 pack year history Reversible airway obstruction Dyspnea on exertion Gastroesophageal reflux disease Lung nodules Surgical History History of tubal ligation History of section Family History Other Cancer Coronary artery disease Family history of diabetes mellitus type II Social History Smoking Status: Former smoker alcohol intake: current alcohol intake frequency: holidays/special occasions only substance use type: denies use current occupational status: employed Travel in the last 8 weeks: None [facility] Anesthesia Checklist Patient Identification Patient Identification: Verbal (Name & ) Structural Data Admitted From: Home Planned Operative Procedure/s: colonoscopy Consent for Planned Operative Procedure(s) Verified: Yes Airway Assessment Mallampati Score:: Class II C-Spine Mobility Assessed: Yes TMJ Mobility Assessed: Yes Dentition: Good Dentition Neurological Assessment Level of Consciousness: Awake, Alert and Appropriate Anesthesia Plan Anesthesia Risk discussed: Yes Anesthesia Plan: Verified ASA Class: II Anesthesia Type: MAC
[2023-09-11 09:09] VITALS: BP 94/56; PULSE 79; RESP 16; TEMP 36.3; O2SAT 96
--- NOTE | 2023-09-11 09:09 | P.PCN_ITS ---
Procedure: Date: 09/11/23 Patient Date of :: 1970 Procedure Performed:: Total colonoscopy to terminal ileum with polypectomy using biopsy forceps Indications:: Patient is a 53-year-old female referred by Heriberto Mayen for initial screening colonoscopy. She states that her father had a colon resection for precancerous polyps at age 78. Performing Provider:: Percy Jaramillo MD Referring Provider:: Heriberto Mayen MD Sedation:: MAC sedation Procedure:: Patient history was obtained and appropriate physical examination was performed. Patient's medications and allergies were reviewed. Informed consent was obtained after explaining the benefits, alternatives, and risks of the procedure including, but not limited to, bleeding, perforation, missed lesions, and adverse reaction to anesthesia medications. Patient was transported to endoscopy procedure room. Patient was connected to monitoring devices. Throughout the procedure the patient's blood pressure, pulse, and oxygen saturations were monitored continuously. Patient identification and planned procedure were verified by the staff. Patient was positioned in lateral decubitus position. Digital anorectal exam was performed. Variable stiffness Olympus colonoscope was inserted and advanced under direct visualization to the cecum. Adequacy of the colonic preparation was noted. The colonoscope was advanced a short distance into the t erminal ileum. The colonoscope was then slowly withdrawn while carefully examining the color, texture, anatomy, and integrity of the mucosoa circumferentially. Within the rectum retroflexion was performed. Colonoscope was then withdrawn. Impression: Colonic preparation was fair as there was some particulate liquid stool throughout the colon but this was able to be cleared with high-volume trans colonoscopic irrigation and suctioning. However she had a rather redundant sigmoid colon with atony. This precluded visualization somewhat due to lack of ability to insufflate the colon, particularly left colon. There were a couple possible descending diminutive polyps in the descending colon however these appeared to be mostly consistent with lymphoid aggregate. Biopsies were obtained. Hemoclip was deployed at the site of minor submucosal hematoma. At the rectosigmoid region there were a couple of hyperplastic appearing polyps removed with cold biopsy forceps. . Findings:: Possible polyps as noted above Somewhat atonic redundant colon which limited visualization somewhat. . Recommendations:: Polyps likely non-adenomatous. However, given the fact that this is her initial screening colonoscopy, father had resection for precancerous polyps, and there was somewhat suboptimal visualization likely repeat colonoscopy 5 years. Complications:: None immediately apparent Estimated blood obtained (mL): 3 Colonoscopy Component Colonoscopy Component Was a colonoscopy performed during today's procedure?: Yes Recommended follow up colonoscopy of at least 10 years?: No If no, follow up colonoscopy recommended in ___ years?: See note Reason for not recommending >/= 10 yr follow-up interval?: See note
[2023-09-11 09:19] VITALS: BP 96/55; PULSE 80; RESP 16; O2SAT 96
[2023-09-11 09:29] VITALS: BP 91/58; PULSE 77; RESP 16; O2SAT 96
[2023-09-11 09:39] VITALS: BP 100/66; PULSE 77; RESP 16; O2SAT 98
== END 2023-09-11 09:40 | disposition home or self-care (01) ==
PROVIDERS: PCP Family Medicine; Visit Provider Surgery
PROC: 0DJD8ZZ Inspection of Lower Intestinal Tract, Via Natural or Artificial Opening Endoscopic (ICD-10-PCS; CPT 45380; principal; 2023-09-11 08:30)
DX: D12.4 Benign neoplasm of descending colon; Z12.11 Encounter for screening for malignant neoplasm of colon; Z83.718 Family history of other colon polyps
CPT/HCPCS: 45380; J2704; J7120

== ENCOUNTER 2024-01-05 12:47 | Outpatient (CLI) | payer OTHER, SELFPAY ==
[2024-01-05] MEDS: ALBUTEROL 0.083% 2.5 MG/3 ML NEB IH (13:22)
== END 2024-01-05 23:59 | disposition home or self-care (01) ==
PROVIDERS: PCP Family Medicine; Visit Provider Internal Medicine Pulmonary Disease
DX: R06.09 Other forms of dyspnea (principal); J44.9 Chronic obstructive pulmonary disease, unspecified; F17.210 Nicotine dependence, cigarettes, uncomplicated
CPT/HCPCS: 71271; 94060; 94618; J7613

== ENCOUNTER 2024-12-01 10:05 | Emergency (ER) | payer OTHER, SELFPAY ==
--- OUTSIDE RECORDS SUMMARY | 2023-09-24 11:30 | XMS_ITS ---
Author Organization Vinay Address 1210 [facility] [address] [place] [phone] Care Team Providers Care Marriage And Family Teacher Name Role Phone Heriberto Mayen Primary Care Provider [phone] Tiana Kelley Unavailable [phone] Allergies No Known Allergies REASON FOR VISIT telehealth-tested positive for COVID, fever, SOB Medications Medication SIG (Take, Route, Frequency, Duration) Notes Start Date End Date Status Paxlovid (300/100) 20 x 150 MG & 10 x 100MG 3 tablets Orally Twice a day 09/24/2023 Active Bromfed DM 2-30-10 MG/5ML 5-10 ml Orally four times a day, prn 09/24/2023 Active Vital Signs Heart Rate 00 /min 09/24/2023 Height 68 in 09/24/2023 Weight 175 lbs 09/24/2023 BMI 26.61 kg/m2 09/24/2023 Encounters Encounter Location Date Provider Diagnosis [place] [facility] [address] [place] [phone] 09/24/2023 Tiana Kelley COVID-19 U07.1 Assessments Encounter [...] Next Appt Details Follow Up: prn, Reason: Provider Name:Tiana Carpenter Iwona unger, 12/01/2024 01:45:00 PM, [address], [address], [place], [place], [id number], Progress Notes * Cora DHILLONDOB:[birth year] (54 yo F)Acc No.[id number]:09/24/2023 Progress Notes Patient: Cora ROWLEY Provider: AMI Gomez :1970 A ge:53 Y S ex:Female Date:09/24/2023 Address:[address] [place] [address], [place], [id number] Pcp:Heriberto Mayen Subjective: * Chief Complaints: * [...] coughing. ? Assessment: * Assessment: 1. C OVID-19 - U07.1 (Primary) Plan: * Treatment: 2. [...] including equipment failure, poor image resolution and geographic information systems analyst issues. You also understand that I cannot [...] from an office setting via secure, live, [id number] video conference with the patient who was located in their home. Prior to the interview, the risks and benefits of telemedicine were discussed with the patient and verbal consent was obtained.. * Follow Up: p rn * Images: Billing Information: * Visit Code: * Procedure Codes: 04927 OFFICE VIST, EST PT. LEVEL 3, TELEHEALTH. 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
--- OUTSIDE RECORDS SUMMARY | 2024-01-21 05:15 | XMS_ITS ---
Author Organization [facility] Address [address] [facility] [address] [facility] [address] [place] [id number] Care Team Providers Care Water Use Inspector Name Role Phone Heriberto Mayen Primary Care Provider Tiana Kelley Unavailable [phone] Allergies No Known Allergies Results Component Value [...] Interpretation: Performing Lab: Notes/Report: Test performed by [employer] [facility] [address] [place], [place] [address] [address] , [address], [place] [address] Rafael Lyons MD, Search Engine Optimization Specialist CLIA: [id number] Vitamin B12 589 562-6434 pg/mL P-Comprehensive Metabolic Pa chase (CMP) Reviewed date:01/22/2024 09:04:19 AM Interpretation: Performing Lab: Notes/Report: Test performed by [facility] [address] [place], [place] [address] Susan Feliciano, [address]ra [address], [place] [address] Rafael Lyons MD, Search Engine Optimization Specialist CLIA: [id number] Sodium 143 135-145 mmol/L Potassium 4.3 3.5-5.3 [...] Interpretation: Performing Lab: Notes/Report: Test performed by [employer] [address] [place] [address] , [place] [address] Rafael Lyons MD, Search Engine Optimization Specialist CLIA: [id number] Cholesterol 175 <200 mg/dL Triglycerides 88 <150 [...] Interpretation: Performing Lab: Notes/Report: Test performed by [facility] , [address], [place] [address] Rafael Lyons MD, Search Engine Optimization Specialist CLIA: [id number] TSH reflex to FT4 1.89 0.43-5.25 mU/L REASON FOR VISIT Anxiety Problems Problem Type SNOMED Code ICD Code Onset Dates Problem Status W/U Status Risk Notes Problem Mixed anxiety and depressive disorder (063667371) Depression with anxiety (F41.8) Active confirmed Vital Signs Blood pressure systolic 118 mm Hg 01/21/20 24 Blood pressure diastolic 64 mm Hg 024 Heart Rate 73 /min 01/21/2024 Height 68 in 01/21/2024 Weight 166.0 lbs 01/21/2024 BMI 25.24 kg/m2 01/21/2024 Encounters Encounter Location Date Provider Diagnosis [facility] [address] [facility] [address] [place], [place] [phone] 01/21/2024 Tiana Kelley Brain fog R41.89 ; [...] phone to repo rt test results, Reason: Provider Name:Tiana unger, 12/01/2024 01:45:00 PM, [address], [address], [place], [place], [id number], Progress Notes * Pat DHILLONjúniorDOB:[birth year] (54 yo F)Acc No.[id number]:01/21/2024 Progress Notes Patient: Cora ROWLEY Provider: AMI Gomez :1970 A ge:53 Y S ex:Female Date:01/21/2024 Address:[address] [place] [address], [place], [id number] Pcp:Heriberto Mayen Subjective: * Chief Complaints: * [...] : a dequate. E ye contact : johnny cartagena. M ood : p alexis. G eneral Examination: General Appearance: N AD. [...] AM) Value Reference Range V itamin B12 240 342-9742 - pg/mL * Tiana Kelley 01/22/2024 9: 04:13 AM [...] * Procedure Codes: 9 4760 [place], [address] CBC WITH AUTO DIFF, 51995 VENIPUNCT, ROUTINE* * Follow Up: v ia phone to report test results * Images: Billing Information: * Visit Code: 27279 Office Visit, Est Pt., Level 4. * Procedure Codes: [address] [place]. [address] CBC WITH AUTO DIFF. 77587 VENIPUNCT, ROUTINE*. * Electronic signature of AMI Mchugh on 12/01/2024 at 10:29 AM EDT Sign off status: Pending * Provider: AMI Gomez Date: 03/22/2023 Generated for Ruddy monahan/Chance/Mattieitting on: 0 12/01/2024 10:29 AM EDT History [...]
--- OUTSIDE RECORDS SUMMARY | 2024-09-21 10:00 | XMS_ITS ---
Author Organization [facility] Address [address] [place] [id number] Care Team Providers Care Zigzag Stitcher Name Role Phone Heriberto Mayen Primary Care Provider Tiana Kelley Unavailable [phone] Allergies No Known Allergies Results Component Value [...] Interpretation:Normal Performing Lab: Notes/Report: Test performed by [facility] [address] [place] [address] , [address], [place] [address] Rafael Lyons MD, Automation And Controls Instructor CLIA: [id number] Vitamin B12 435 855-0561 pg/mL P-Comprehensive Metabolic Pa chase (CMP) Reviewed date:09/22/2024 03:13:37 PM Interpretation:Normal Performing Lab: Notes/Report: Test performed by [facility] [address] [place], [place] [address] [place] , [address], [place] [address] Rafael Lyons MD, Automation And Controls Instructor CLIA: [id number] Sodium 141 135-145 mmol/L Potassium 4.4 3.5-5.3 [...] Interpretation:Normal Performing Lab: Notes/Report: Test performed by [facility] [address] [place] [address] , [address], [place] [address] Rafael Lyons MD, Automation And Controls Instructor CLIA: [id number] Magnesium 2.1 1.6-2.4 mg/dL P-TSH reflex to FT4 Reviewed date:09/22/2024 03:13:27 PM Interpretation:Normal Performing Lab: Notes/Report: Test performed by [facility] [address] [place] [address] , [address], [place] [address] Rafael Lyons MD, Automation And Controls Instructor CLIA: [id number] TSH reflex to FT4 2.69 0.43-5.25 mU/L P-Vitamin D 25-Hydroxy Reviewed date:09/22/2024 03:14:03 PM Interpretation:Normal Performing Lab: Notes/Report: Test performed by [facility] [address] [place] [address] , [address], [place] [address] Rafael Lyons MD, Automation And Controls Instructor CLIA: [id number] Vitamin D 25-Hydroxy 33.7 30.0-100.0 ng/mL Interpretation [...] W/U Status Risk Notes Problem Chronic insomnia (561365346) Chronic insomnia (F51.04) Active confirmed Vital Signs Blood pressure systolic 120 mm Hg 09/22/19 25 Blood pressure diastolic 70 mm Hg 025 Heart Rate 75 /min 09/21/2024 Height 68 in 09/21/2024 Weight 167.4 lbs 09/21/2024 BMI 25.45 kg/m2 09/21/2024 Encounters Encounter Location Date Provider Diagnosis [place] [address] [facility] 36 [facility] [address] [place] [id number] 09/21/2024 Tiana Kelley Other fatigue R53.83 ; [...] Name:Tiana unger, 12/01/2024 01:45:00 PM, [address], [place], [id number], Progress Notes * Sanya DHILLON:[birth year] (54 yo F)Acc No.[id number]:09/21/2024 Progress Notes Patient: Cora ROWLEY Provider: AMI Gomez :1970 A ge:54 Y S ex:Female Date:09/21/2024 Address:[address] [place] [address] [place], [place], [id number] Pcp:Heriberto Mayen Subjective: * Chief Complaints: * [...] Orally Once a day , Discontinued Vit L46-Pphkxacrne-Dtyj-Eain - Solution as directed Intramuscular , Medication List reviewed and reconciled with the patient * Allergies: N .K.D.A. Objective: * Vitals: W t: 167.4, Temp: 97.9, BP: 120/70, HR: 75, Nurse: sage, Ht: 68, BMI:25.45. * Examination: G eneral [...] B12 deficiency - E53.8 5 . B [place] 25.0-25.9,adult - Z68.25 Plan: * Treatment: Value [...] Tiana Kelley 09/21/2024 02 :28:23 PM EDT >[facility] 09/22/2024 03:13:32 PM EDT >pt informed ?LAB: P-Magnesium (Collection Date & Time - 09/21/2024 01:33 PM)?Normal* Value Reference Range M agnesium 2.1 1.6-2.4 - mg/dL * Tiana Kelley 09/21/2024 02 :28:23 PM EDT >[facility] 09/22/2024 03:14:07 PM EDT >pt informed ?LAB: P-TSH reflex to FT4 (Collection Date & Time - 09/21/2024 01:33 PM)? Normal* Value Reference Range T SH reflex to FT4 2.69 0.43-5.25 - mU/L * Tiana Kelley 09/21/2024 02 :28:23 PM EDT >room [facility] 09/22/2024 03:13:03 PM EDT >pt informed ?LAB: P-Vitamin D 25-Hydroxy (Collection Date & Time - 09/21/2024 01:33 PM)? Normal* Value Reference Range V itamin D 25-Hydroxy 33.7 30.0-100.0 - ng/mL * Tiana Kelley 09/21/2024 02 :28:23 PM EDT >room [facility] 09/22/2024 03:13:59 PM EDT >pt informed ?LAB: [...] Bettie Garzon 09/21/2024 03 :39:43 PM EDT [facility] 03:13:41 PM EDT >pt informed 2.?Chronic insomnia? Start hydrOXYzine HCl Tablet, 25 MG, 1 tablet, Orally, 30 minutes before sleep, prn, 30, Refills 0. ?3.?Vitamin B12 deficiency?LAB: P-Vitamin B12 (Collection Date & Time - 09/21/2024 01:33 PM)?Normal* Value Reference Range V itamin B12 291 544-6145 - pg/mL * Tiana Kelley 09/21/2024 02 :28:23 PM EDT >room B, [facility] 09/22/2024 03:13:50 PM EDT >pt informed * [...] * Images: Billing Information: * Visit Code: 30348 Office Visit, Est Pt., Level 4. * Procedure Codes: 35551 CBC WITH AUTO DIFF. 1036F TOBACCO NON-USER. G8783 BP SCR PRFRM RCMDD DEFIND SCR INTVL. G8752 MOST RECENT SYSTOLIC BP < 140MM HG. G8754 MOST RECENT DIASTOLIC BP < 90MM HG. G8420 BMI<30 AND >=22 CALC & DOCU. * Electronic signature of AMI Mchugh on 12/01/2024 at 10:29 AM EDT Sign off status: Pending * Provider: AMI Gomez Date: 09/21/2024 Generated for Ruddy ng/Faneelamg/eTransmitting on: 0 12/01/2024 10:29 AM EDT History [...]
[2024-12-01 10:16] VITALS: BP 118/79; PULSE 73; RESP 19; TEMP 37.1; O2SAT 100; BMI 25.4
--- NOTE | 2024-12-01 10:28 | ED_ITS ---
<Statement entered by Maurice Clayton MD - 12/01/24 15:58> I was consulted by the LINK, and we discussed the complexity of the problems being addressed. I approved the treatment and management plan for this patient's care in the emergency department, thus performing a substantive portion of the medical decision making. Maurice Clayton MD Discharge Plan Disposition Patient Disposition: Home, Self-Care Prescriptions Prescriptions: New cefdinir 300 mg capsule 300 mg PO BID 10 Days Qty: 20 0RF No Action esomeprazole magnesium [Nexium] 40 mg capsule,delayed release(DR/EC) 40 mg PO DAILY Qty: 30 1RF aripiprazole [Abilify] 5 mg tablet 5 mg PO QHS Qty: 30 1RF budesonide-formoterol [Symbicort] 160-4.5 mcg/actuation HFA aerosol inhaler 2 puff inhalation BID 90 Days Qty: 10.2 2RF Referrals Follow up/Referrals: Heriberto Mayen MD [Primary Care Provider, Medical] - See instructions Activity Restrictions/Add. Instructions Additional Instructions/Restrictions: Increase fluids and rest. Take meds as directed. If any worsening symptoms occur please see your PCP or follow-up with ED. Clinical Impressions Clinical Impression: Urinary tract infection Instructions Patient Instructions: DI for Urinary Tract Infection (UTI) Print Language Print Language: Italian Discharge ED Provider: Maurice Clayton General Adult HPI General Chief complaint: Urogenital-Female Stated complaint: Pain and frequent urination Time Seen by Provider: 12/01/24 10:10 Mode of Arrival: Ambulatory Source of Information: Patient Description of Symptoms (Recalled from ER Triage Doc. by RN): pt presents to ED with c/o UTI and urgency and pain with urination. symptoms began this am. pt reports hx of chronic UTI, pt used to take macrobid prophalaxsis. pt reports to taking azo and cystex for OTC relief. History of Present Illness HPI narrative: 54-year-old female presents to the ED today with complaint of burning with urination. She says she woke up this morning with urgency, pain. She has been taking Macrobid prophylactically for 12 years and doing fine. She used to get UTIs frequently and took Bactrim but it stopped working. She has had no fevers, chills, nausea or vomiting. No other symptoms at this time. No back pain. Related Data Previous Rx's ?Medication ?Instructions ?Recorded esomeprazole magnesium 40 mg 40 mg PO DAILY #30 caps 1 03/28/23 capsule,delayed release (Nexium) budesonide-formoterol HFA 160 2 puff inhalation BID 90 days 02/18/24 mcg-4.5 mcg/actuation aerosol #10.2 grams inhaler (Symbicort) aripiprazole 5 mg tablet (Abilify) 5 mg PO QHS #30 tab s 02/24/24 cefdinir 300 mg capsule 300 mg PO BID 10 days #20 ca ps 12/01/24 Allergies Allergy/AdvReac Type Severity Reaction Status Date / Time No Known Allergies Allergy Verified 03/11/24 18:15 [facility] Disclaimer: The information contained in this section may have been updated after the patient was seen, as this information can be updated by other users. Medical History (Updated 12/01/24 @ 11:06 by Radha Carey (ED), CUSTOMER SUPPORT COORDINATOR) Recurrent major depression resistant to treatment Gastritis Chronic cough Encounter for screening for malignant neoplasm of lung History of 2019 novel coronavirus disease (COVID-19) Calcified lymph nodes Mild intermittent asthma Multiple pulmonary nodules Stopped smoking with greater than 30 pack year history Reversible airway obstruction Dyspnea on exertion Gastroesophageal reflux disease Lung nodules Surgical History History of tubal ligation History of section Family History Other Cancer Coronary artery disease Family history of diabetes mellitus type II Social History Smoking Status: Never smoker alcohol intake: current alcohol intake frequency: holidays/special occasions only substance use type: denies use current occupational status: employed Travel in the last 8 weeks?: None Have you lived/traveled outside US in past 30 days?: No Contact w/someone who lives/traveled outside US past 30 days?: No Exposure to someone with infectious disease in past 14 days?: No Do you have a fever (greater than 100.4 F or 38 C)?: No Have you tested positive for COVID-19?: No Exposed to someone with COVID-19 in past 14 days?: No Do you have a sore throat?: No Do you have a cough?: No Do you have any weakness?: No Do you have any diarrhea?: No Are you experiencing any unusual bleeding?: No Do you have any muscle aches/pain?: No Do you have any abdominal pain?: No Are you experiencing loss of taste or smell?: No Other Medical History Have you received the Flu Vaccine for this season: Yes Have you received the Pneumonia Vaccine: No ROS Obtained: Yes Systems reviewed as appropriate & no additional complaints except as documented Constitutional Constitutional: Reports as per HPI Physical Exam General General appearance: alert and in no apparent distress Head Head exam: normocephalic Eye Eye exam: Present PERRL and EOMI ENT ENT exam: Present normal oropharynx and mucous membranes moist Neck Neck exam: Present full ROM and trachea midline Respiratory Respiratory exam: Present normal lung sounds bilaterally Cardiovascular Cardiovascular exam: Present regular rate, normal rhythm, normal heart sounds, +S1 and +S2 Abdominal Exam Abdominal exam: Present soft and normal bowel sounds Extremities Exam Extremities exam: Present normal inspection and full ROM Neurological Exam Neurological exam: Present alert and oriented X3 Skin Skin exam: Present warm and dry Medical Decision Making Medical Records Screening: Per USPSTF and CDC recommendations, given the prevalence of disease in our region, it is our hospital?s policy to screen for HIV and viral Hepatitis for all patients aged 18 and over and those with ongoing risk factors. Rk Inquiry Pt receiving controlled substance: No Rk was queried for this patient: No Vital Signs: 12/01/24 10:16 12/01/24 11:09 Temperature 98.8 F 98.0 F Temperature Source Oral Pulse Rate 65 Pulse Rate [Left Radial] 73 Respiratory Rate 19 19 Blood Pressure 110/75 Blood Pressure [Right Arm] 118/79 Blood Pressure Mean [Right Arm] 92 02 Sat by Pulse Oximetry 100 Lab Data Lab Results 12/01/24 10:13: Urine Color [place], Urine Appearance Cloudy, Urine pH 5.0, Ur Specific [place] 1.020, Urine Protein 2+ A, Urine Glucose (UA) Trace, Urine Ketones Trace, Urine Blood 3+ A, Urine Nitrate Positive A, Urine Bilirubin Negative, Urine Urobilinogen 4.0, Ur Leukocyte Esterase 1+ A, Urine RBC 50-100, Urine WBC 5-10, Ur Squamous Epith Cells 3-5, Urine Bacteria 2+ Orders (Tests/Meds): ORDERS Category Date Time Status Urinalysis and Microscopic Stat Lab 12/01/24 10:13 Completed Urine Culture Stat Micro 12/01/24 10:13 Received Medical Decision Narrative: patient is a 54-year-old female presenting to the emergency department for evaluation of urinary urgency and frequency that started this morning. Patient is hemodynamically stable and nontoxic-appearing upon arrival, afebrile. Differential diagnosis includes UTI, pyelonephritis, among others. Workup will be conducted with hematologic labs, specific imaging. Workup will include a UA. Patient says that she has no other symptoms including fevers or chills. Patient positive for nitrates, and leukocytes in her urine. Omnicef written sent to [facility]. Patient safe for discharge home Critical Care Critical Care Time Critical Care Time: No
--- OUTSIDE RECORDS SUMMARY | 2024-12-01 10:29 | XMS_ITS | Patient Health Record ---
[facility] Address [address] [facility] [address] [place] [id number] Care Team Providers Care Manufacturing Executive Name Role Phone Heriberto Mayen Primary Care Provider [phone] Tiana Kelley Unavailable [phone] Allergies No Known Allergies Results Component Value Reference Range Notes P-Vitamin D 25-Hydroxy Reviewed date:09/22/2024 03:14:03 PM Interpretation:Normal Performing Lab: Notes/Report: Test performed by [facility] [address] [place] [address] , [address], [place] [address] Rafael Lyons MD, Raw Stock Dyeing Machine Tender CLIA: [id number] Vitamin D 25-Hydroxy 33.7 30.0-100.0 ng/mL Interpretation of Vitamin D 25 OH: < 20 ng/mL - Deficiency 20 - 29 ng/mL - Insufficiency 30 - 100 ng/mL - Sufficiency > 100 ng/mL - Super-therapeutic- toxicity may occur above this level. Clinical correlation required. P-TSH reflex to FT4 Reviewed date:09/22/2024 03:13:27 PM Interpretation:Normal Performing Lab: Notes/Report: Test performed by [facility] [address] [place] [address] , [address], [place] [address] Rafael Lyons MD, [employer] D[employer]ing Machine Tender CLIA: [id number] TSH reflex to FT4 2.69 0.43-5.25 mU/L P-Magnesium Reviewed date:09/22/2024 03:14:12 PM Interpretation:Normal Performing Lab: Notes/Report: Test performed by [facility] [address] [place] [address] , [address], [place] [address] Rafael Lyons MD, Raw Stock Dyeing Machine Tender CLIA: [id number] Magnesium 2.1 1.6-2.4 mg/dL P-Comprehensive Metabolic Pa chase (CMP) Reviewed date:09/22/2024 03:13:37 PM Interpretation:Normal Performing Lab: Notes/Report: Test performed by [facility] [address] [place] [address] , [address], [place] [address] Rafael Lyons MD, Raw Stock Dyeing Machine Tender CLIA: [id number] Sodium 141 135-145 mmol/L Potassium 4.4 3.5-5.3 [...] 0.3 <0.2-1.2 mg/dL A/G Ratio 1.9 1.1-2.5 P-Vitamin B12 Reviewed date:09/22/2024 03:13:54 PM Interpretation:Normal Performing Lab: Notes/Report: Test performed by [facility] [address] [place] [address] , [address], [place] [address] Rafael Lyons MD, Raw Stock Dyeing Machine Tender CLIA: [id number] Vitamin B12 135 235-6236 pg/mL CBC Venipuncture (in house) Reviewed date:09/22/2024 03:13:45 [...] - 38 platlet 220 100 - 400 P-TSH reflex to FT4 Reviewed date:01/22/2024 09:04:19 AM Interpretation: Performing Lab: Notes/Report: Test performed by [facility] [employer] [address] , [place] [address] Rafael Lyons MD, Raw Stock Dyeing Machine Tender CLIA: [id number] TSH reflex to FT4 1.89 0.43-5.25 mU/L P-Lipid Panel Reviewed date:01/22/2024 09:04:19 AM Interpretation: Performing Lab: Notes/Report: Test performed by [facility] [facility] [address] [place], [place] [address] Rafael Lyons MD, Raw Stock Dyeing Machine Tender CLIA: [id number] Cholesterol 175 <200 mg/dL Triglycerides 88 <150 [...] Results: 68 Units: mg/dL % Change: - P-Comprehensive Metabolic Pa chase (CMP) Reviewed date:01/22/2024 09:04:19 AM Interpretation: Performing Lab: Notes/Report: Test performed by [facility] [address] [place] [address] , [place] [address] Rafael Lyons MD, Raw Stock Dyeing Machine Tender CLIA: [id number] Sodium 143 135-145 mmol/L Potassium 4.3 3.5-5.3 [...] 0.4 <0.2-1.2 mg/dL A/G Ratio 2.0 1.1-2.5 P-Vitamin B12 Reviewed date:01/22/2024 09:04:19 AM Interpretation: Performing Lab: Notes/Report: Test performed by [facility] [address] [place] [address] , [address], [place] [address] Rafael Lyons MD, Raw Stock Dyeing Machine Tender CLIA: [id number] Vitamin B12 461 005-9640 pg/mL CBC Venipuncture (in house) Reviewed date:01/21/2024 02:05:33 [...] - 38 platlet 207 100 - 400 Medications Medication SIG (Take, Route, Frequency, Duration) Notes Start Date End Date Status Benadryl Allergy Extra Str 50 MG 1 tablet at bedtime as needed Orally Once a day Active hydrOXYzine HCl 25 MG 1 tablet as needed 30 minutes before sleep Orally daily; Duration: 30 days Active Vitamin B12 1000 MCG 1 tablet Orally Onc e a day Active Immunizations Vaccine Route Administration Date Status Comme nts Fluzone Quad (6months&older) Unknown 02/03/2018 Administered Fluzone Quad (6months&older) IM Intramuscular 04/06/2023 Administered Fluzone PF Quad (6-35 months) Unknown 02/04/2019 Administered Fluzone PF Quad (6-35 months) Unknown 12/30/2019 Administered Fluzone PF Quad (6-35 months) Unknown 01/07/2021 Administered Fluzone PF Quad (6-35 months) Unknown 02/05/2022 Administered Fluzone Intradermal Quad private(18-64yrs) IM Intramuscular 12/12/2015 Administered COVID 19 Pfizer Unknown 06/09/2020 Administered COVID 19 Pfizer Unknown 06/30/2020 Administered COVID 19 Pfizer Unknown 02/15/2021 Administered Problems Problem Type SNOMED Code ICD Code Onset Dates Problem Status W/U Status Risk Notes Problem Abnormal mammogram (774336062) Abnormal mammogram (R92.8) Active confirmed Problem Mixed anxiety and depressive disorder (271493638) Depression with anxiety (F41.8) Active confirmed Problem Mammography abnormal (408612917) Abnormal mammogram of left breast (R92.8) Active confirmed Problem COPD - Chronic obstructive pulmonary disease (74774126) Chronic obstructive pulmonary disease, unspecified COPD type (J44.9) Active confirmed Problem SI - Stress incontinence (79338642) Stress incontinence (N39.3) Active confirmed Problem Menopause (646848583) Perimenopausal symptoms (N95.1) Active confirmed Problem Chronic rhinitis (42072525) Rhinitis, unspecified type (J31.0) Active confirmed Problem Menopause (905997755) Post menopausal syndrome (N95.1) Active confirmed Problem Seasonal allergic rhinitis (895083715) Seasonal allergic rhinitis, unspecified trigger (J30.2) Active confirmed Problem History of bilateral mastectomy (situation) (109430599) S/P mastectomy, bilateral (Z90.13) Active confirmed Problem Chronic insomnia (178658512) Chronic insomnia (F51.04) Active confirmed Vital Signs Heart Rate 75 /min 09/21/2024 Blood pressure diastolic 70 mm Hg 09/21/2024 Height 68 in 09/21/2024 Blood pressure systolic 120 mm Hg 09/21/2024 Weight 167.4 lbs 09/21/2024 BMI 25.45 kg/m2 09/21/2024 Encounters Encounter Location Date Provider Diagnosis [facility] [address] [place] [address] [place] [id number] 01/21/2024 Tiana Kelley Brain fog R41.89 ; Depression with anxiety F41.8 ; Lip numbness R20.0 and Screening, lipid Z13.220 [facility] [place] [id number] 09/21/2024 Tiana Kelley Other fatigue R53.83 ; Dizziness R42 ; Chronic insomnia F51.04 ; Vitamin B12 deficiency E53.8 and BMI 25.0-25.9,adult Z68.25 [facility] [address] [place] [address] [place] [id number] 01/22/2024 Tiana Kelley [facility] [place] [id number] 10/10/2024 Heriberto Mayen Assessments Encounter Date Diagnosis (ICD Code) Assessment Notes Treatment Notes Treatment Clinical Notes Section Notes 01/21/2024 Depression with anxiety (ICD-10 - F41.8) Discussed genetic testing and patient wishes to proceed. She will go get a genetic swab done today and schedule an appt with Abbey to go over the testing and initiate medication. 01/21/2024 Brain fog (ICD-10 - R41.89) 09/21/2024 Dizziness (ICD-10 - R42) 09/21/2024 Other fatigue (ICD-10 - R53.83) 09/21/2024 Chronic insomnia (ICD-10 - F51.04) 01/21/2024 Lip numbness (ICD-10 - R20.0) 09/21/2024 Vitamin B12 deficiency (ICD-10 - E53.8) 01/21/2024 Screening, lipid (ICD-10 - Z13.220) 09/21/2024 BMI 25.0-25.9,adult (ICD-10 - Z68.25) Plan Of Treatment Pending Test Test Name Order Date colonoscopy 06/02/2023 Next Appt Details Provider Name:Tiana unger, 12/01/2024 01:45:00 PM, [address], [address], [place], [place], [id number], Insurance Providers Payer Name Payer Address Payer Phone Subscriber Number Group Number Insured Name Patient Relationship to Insured Coverage Start Date Coverage End Date [employer] [address] [place] [phone] [id number] Cora Dhillon Self - patient is the insured Medications Administered Medication Instructions Date of Administration Dosage Notes phenergan 25 mg/ml 08/12/2011 50 mg Medical (General) History Medical History History ICD Code allergic rhinitis 30 pack year smoking history, quit in Surgical History Surgery Date(Month/Year) Tubal Ligation 2000 C Section RT Breast Biopsy, normal 2009 LT Breast Lumpectomy 07/19/2019 bilatreral mastectomy 07/2021
--- OUTSIDE RECORDS SUMMARY | 2024-12-01 10:29 | XMS_ITS | Encounter Summary ---
[facility] Address [address] [place] [address] Care Team Providers Care File Keeper Name Role Phone Heriberto Mayen MD Primary Care Provider [phone] Encounter Details Date Type Department Care Team (Late st Contact Info) Description 08/06/2021 Telephone [facility] [address] [place] [address] Sury Youssef RN Social History Tobacco Use Types Packs/Day Years Used Date Smoking Tobacco: Former Cigarettes 1.5 25 1 985 - 2009 Smokeless Tobacco: Never Alcohol Use Standard Drinks/Week Comments Yes 0 (1 standard drink = 0.6 oz pur e alcohol) socially AUDIT-C Answer Date Recorded Q1: How often do you have a drink containing alcohol? Never 07/30/2021 Q2: How many drinks containi ng alcohol do you have on a typical day when you are drinking? Patient does not drink Q3: How often do you have si x or more drinks on one occasion? Never 07/30/2021 Comments No Sex and Gender Information Value Date Recorded Sex Assigned at Not on file Legal Sex Female 2:59 PM EST Gender Identity Not on file Sexual Orientation Not on file documented as of this encounter Plan of Treatment Not on file documented as of this encounter Visit Diagnoses Not on filedocumented in this encounter Care Teams File Keeper Relationship Specialty Start Date End Date Heriberto Mayen MD [address] [place] [address] [place] [address] PCP - General Family Medicine 05/17/19 documented as of this encounter
--- OUTSIDE RECORDS SUMMARY | 2024-12-01 10:29 | XMS_ITS | Clinical Summary ---
[facility] Address [address] [place] [address] Care Team Providers Care Delphi Programmer Name Role Phone Heriberto Mayen MD Primary Care Provider + [phone] Allergies No known active allergies Medications albuterol sulfate HFA 108 (90 Base) MCG/ACT inhaler Inhale 2 puffs As Needed. Active cyclobenzaprine (FLEXERIL) 5 MG tablet Take 5 mg by mouth 3 (Three) Times a Day As Needed. 07/01/2019 Active diphenhydrAMINE (BENADRYL) 25 mg capsule Take 25 mg by mouth 2 (Two) Times a Day. Pt takes at night to help her sleep Active Melatonin 10 MG tablet Take 10 mg by mouth Every Night. Active PARoxetine (PAXIL) 10 MG tablet Take 10 mg by mouth Every Morning. Active cetirizine (zyrTEC) 10 MG tablet Take 10 mg by mouth Daily As Needed. Active acetaminophen (TYLENOL) 500 MG tablet Take 500 mg by mouth Every 6 (Six) Hours As Needed for Mild Pain . Active ibuprofen (ADVIL,MOTRIN) 200 MG tablet Take 800 mg by mouth Every 6 (Six) Hours As Needed for Mild Pain . Active docusate sodium (COLACE) 100 MG capsule Take 100 mg by mouth As Needed for Constipatio n. Active Hospital, Clinic, or Other Facility Administered Medication Ordered Dose Route Frequency Start Date End Date Status lidocaine (XYLOCAINE) 1 % injection 5 mL 5 mL INFILTRATION Once 02/21/2021 Acti ve lidocaine 1% - EPINEPHrine 1:314173 (XYLOCAINE W/EPI) 1 %-1:200343 injection 20 mL 20 mL INFILTRATION Once 02/21/2021 Active Active Problems Problem Noted Date Diagnosed Date Benign mammary dysplasia of left breast 07/31/19 22 Family History Medical History Relation Name Comments Breast cancer Mother Ovarian cancer Neg Hx Relation Name Status Comments Mother Social History Tobacco Use Types Packs/Day Years Used Date Smoking Tobacco: Former Cigarettes 1.5 25 1 2009 Smokeless Tobacco: Never Alcohol Use Standard [...] more drinks on one occasion? Never 07/30/2021 Abuse Screen Answer Date Recorded Unsafe at Home or Work/School Not on file Feels Threatened by Someone? Not on file 02/2023 Does Anyone Keep You from Co ntacting Others or Doint Things Outside the Home? Not on file 12/25/2022 Physical Sign of Abuse Present Not on file 1 Housing Stability Answer Date Recorded Current Living Arrangements Not on file 12/14 Potentially Unsafe Housing Conditions Not on luis e 12/25/2022 Family and Community Support Answer Lucho e Recorded Help with Day-to-Day Activities Not on file 12/25/2022 Lonely or Isolated Not on file 12/25/2022 Employment Answer Date Recorded Do you want help finding or keeping work or a ruslan b? Not on file 12/25/2022 Disabilities Answer Date Recorded Concentrating, Remembering, or Making Decisions Difficulty Not on file 12/25/2022 Doing Errands Independently Difficulty Not on fi le 12/25/2022 Education Answer Date Recorded Help with school or training? Not on file Preferred Language Not on file 12/25/2022 Comments No Sex and Gender Information Value Date Recorded Sex Assigned at Not on file Legal Sex Female 2:59 PM EST Gender Identity Not on file Sexual Orientation Not on file Last Filed Vital Signs Vital Sign Reading Time Taken Comments Blood Pressure 168/71 07/31/2021 7:27 AM EDT Pulse 68 07/31/2021 7:27 AM EDT Temperature 36.7 C (98 F) 07/31/2021 7:27 AM EDT Respiratory Rate 16 07/31/2021 7:27 AM EDT Oxygen Saturation 95% 07/31/2021 7:27 AM EDT Inhaled Oxygen Concentration - - Weight 70.8 kg (156 lb) 08/27/2021 10:00 AM EDT Height 172.7 cm (5' 8 ) 08/27/2021 10:00 AM EDT Body Mass Index 23.72 08/27/2021 10:00 AM EDT Plan of Treatment Health Maintenance Due Date Last Done Comments Annual Gynecologic Pelvic an d Breast Exam 1970 TDAP/TD VACCINES (1 - Tdap) 1988 COLOGUARD 2014 COLON CANCER SCREENING 5 YEA R SIGMOIDOSCOPY 2014 COLONOSCOPY 2014 [address] CANCER SCREENING 2014 CT COLONOGRAPHY 2014 FECAL OCCULT BLOOD TEST 2014 FIT Testing (1 year) 2014 ANNUAL PHYSICAL 05/20/2019 HEPATITIS C SCREENING 05/20/2019 Pneumococcal Vaccine 50+ (1 of 1 - PCV) 06/17/2019 ZOSTER VACCINE (1 of 2) 06/17/2019 OT PLAN OF CARE 11/25/2021 08/27/2021 MAMMOGRAM 01/17/2023 01/17/2021, 08/2019, 06/14/2019, Additional history exists COVID-19 Vaccine (2024-2 6 season) 2024 02/15/2021, 06/30/2020, 06/09/2020 INFLUENZA VACCINE 12/14/2024 02/04/2019 Medical Devices Implanted Type Area Decal Cutter Device Identifier Shelf Expiration Date Model / Serial / Lot Implant Description:Clip possible in left breast Procedures Procedure Name Priority Date/Time Associated Diagnosis Comments MAMMO DIAGNOSTIC DIGITAL TOMOSYNTHESIS BILATERAL W CAD Routine 01/17/2021 9:24 AM EDT Benign mammary dysplasia, unspecified laterality from Last 3 Months or Most Recently Relevant to Health Maintenance Results * (ABNORMAL) Mammo Diagnostic Digital Tomosynthesis Bilateral With CAD (01/17/2021 9:24 AM EDT) Anatomical Region Laterality Modality Breast Bilateral Mammography 01/17/2021 11:4 0 AM EDT Addenda Addendum by Paty Black MD on 02/22/2021 12:36 PM EST ADDENDUM: The patient returned on 02/21/2021 for stereotactic core biopsy of calcifications in the right breast as well as ultrasound-guided aspiration of several complicated cysts. The patient informed us that she will be undergoing a bilateral prophylactic mastectomy in March 2021. Therefore it was elected to not proceed with the cyst aspiration as these were not felt to reflect prominent masses based on the MRI appearance. Written and verbal consent was obtained for stereotactic biopsy/tomosynthesis guided biopsy of the faint grouped calcifications in the right upper outer quadrant. The patient was next placed in the prone position for stereotactic core biopsy for the stereotactic biopsy calcifications in the right upper outer quadrant. Time-out was observed to verify patient's identity and correct location of the breast abnormality. The patient was placed on the prone tomographic/stereotactic core biopsy table and spectrographic analyst images were obtained. Due to their faint nature the calcifications recommended for biopsy could not be readily seen. Therefore, given the fact that the patient will be proceeding with a bilateral prophylactic mastectomy it was elected to terminate the procedure. If the patient elects to not undergo the bilateral mastectomy, then it is elected that the patient be scheduled to return for the cyst aspiration as well as a 6 month mammographic follow-up of the calcifications on the right. AM:mm E: 02/21/2021 This report was finalized on 02/22/2021 12:[address] Paty Black MD. Impressions 01/18/2021 11:18 AM EDT 1. Stable mammographic appearance of the left breast with stable benign findings as described above. 2. The palpable areas of concern noted by the patient in both the right upper outer quadrant and in the right 6:00 distribution correlate to multiple adjacent complicated cysts. The largest cyst is located in the 11:00 position and measures 1.2 cm in size. It appears to contain mobile internal debris. 3. Grouped indeterminate calcifications right upper outer quadrant. RECOMMENDATION: Recommend stereotactic core biopsy of grouped calcifications in the right upper outer quadrant. Also, the patient has multiple complicated cysts the largest of which is located in the 11:00 position. These do correlate to the palpable areas of concern noted by the patient. Given the patient's personal history of atypical ductal hyperplasia as well as her strong family history recommend the patient undergo breast MRI evaluation prior to the stereotactic core biopsy. This will also serve to evaluate the complicated cysts noted sonographically for any associated abnormal enhancement. ACR BI-RADS CATEGORY: 4, SUSPICIOUS CAD was utilized. The standard false-negative rate of mammography is between 10% and 25%. Complex patterns or increased breast density will markedly elevate the false-negative rate of mammography. A letter, in lay terminology, with the results of this exam was given to the patient at the time of the visit. At our facility, a triangular marker is positioned over a palpable area of concern indicated by the patient. A white earth marker is placed over a visible skin lesion. A linear marker indicates a scar. Physicians Order Stereotactic Breast Biopsy Diagnosis: Abnormal Mammogram . This report was finalized on 01/18/2021 11:[address] Paty Black MD. Narrative 01/18/2021 11:18 AM EDT EXAMINATION: BILATERAL DIAGNOSTIC DIGITAL MAMMOGRAM WITH TOMOSYNTHESIS AND A FOCUSED RIGHT BREAST ULTRASOUND CLINICAL INDICATION: 50-year-old patient presents for evaluation of 2 palpable areas of concern she notes in her right breast. She is status post biopsy of calcifications in the left breast in 2018 which yielded atypical ductal hyperplasia. She did undergo excisional biopsy in 1999 revealing residual focal atypical ductal hyperplasia. She is also status post a left breast cyst aspiration. She reports a family history of breast cancer in her mother diagnosed at age 67. The patient's lifetime risk of developing breast cancer was estimated to be 36.3% based on the Lluvia Risk Assessment model. TECHNIQUE: Low dose full field digital breast tomosynthesis imaging was performed consisting of bilateral CC and MLO views. In addition, bilateral exaggerated lateral CC views were obtained. In addition, a left CC focal compression view with Tomosynthesis was performed as well as right CC and ML magnification views. Finally, focused ultrasound imaging of the right breast was performed. COMPARISON: 12/20/2019, 07/19/2019, 06/14/2019, 01/11/2019, 12/20/2018, 12/06/2018, 11/22/2017 FINDINGS: The breasts are heterogeneously dense, which may obscure small masses. Left breast: The fibroglandular pattern is stable including postsurgical changes in the upper outer quadrants. Nodular asymmetries in the central breast on the CC view improved with focal compression imaging with the tissue appearing similar to the prior exam. There are stable grouped rounded calcifications present in the upper outer quadrant. These abut the skin on the MLO view and may be within the skin too. No spiculated masses or suspicious calcifications are seen. Right breast: There are some areas of obscured nodularity in the upper outer quadrant which do correlate to one of the palpable areas of concern. Faint loosely grouped punctate and amorphous calcifications are noted in the mid upper outer quadrant. These are not definitely seen on the prior exam. There is some stable asymmetric tissue in the 12-1 o'clock distribution. The triangular skin marker placed over the lower outer quadrant prior to imaging to indicate a separate area of concern corresponds to stable dense fibroglandular tissue. Ultrasound imaging of the right breast was performed targeted to the palpable areas of concern. In the upper outer quadrant in the 11:00 position there are multiple adjacent complicated/acorn cysts. The largest one measures 1.3 cm in size and has mobile internal debris. This correlates to the palpable area of concern noted by the patient. Located in the 6:00 distribution are also several adjacent complicated/acorn-type cysts. These also correlate to the area of concern noted by the patient in this region. Procedure Note Paty Black MD - 01/18/2021 EXAMINATION: BILATERAL DIAGNOSTIC DIGITAL MAMMOGRAM WITH TOMOSYNTHESIS AND A FOCUSED RIGHT BREAST ULTRASOUND CLINICAL INDICATION: 50-year-old patient presents for evaluation of 2 palpable areas of concern she notes in her right breast. She is status post biopsy of calcifications in the left breast in 2017 which yielded atypical ductal hyperplasia. She did undergo excisional biopsy in 1999 revealing residual focal atypical ductal hyperplasia. She is also status post a left breast cyst aspiration. She reports a family history of breast cancer in her mother diagnosed at age 67. The patient's lifetime risk of developing breast cancer was estimated to be 36.3% based on the Lluvia Risk Assessment model. TECHNIQUE: Low dose full field digital breast tomosynthesis imaging was performed consisting of bilateral CC and MLO views. In addition, bilateral exaggerated lateral CC views were obtained. In addition, a left CC focal compression view with Tomosynthesis was performed as well as right CC and ML magnification views. Finally, focused ultrasound imaging of the right breast was performed. COMPARISON: 12/20/2019, 07/19/2019, 06/14/2019, 01/11/2019, 12/20/2018, 12/06/2018, 11/22/2017 FINDINGS: The breasts are heterogeneously dense, which may obscure small masses. Left breast: The fibroglandular pattern is stable including postsurgical changes in the upper outer quadrants. Nodular asymmetries in the central breast on the CC view improved with focal compression imaging with the tissue appearing similar to the prior exam. There are stable grouped rounded calcifications present in the upper outer quadrant. These abut the skin on the MLO view and may be within the skin too. No spiculated masses or suspicious calcifications are seen. Right breast: There are some areas of obscured nodularity in the upper outer quadrant which do correlate to one of the palpable areas of concern. Faint loosely grouped punctate and amorphous calcifications are noted in the mid upper outer quadrant. These are not definitely seen on the prior exam. There is some stable asymmetric tissue in the 12-1 o'clock distribution. The triangular skin marker placed over the lower outer quadrant prior to imaging to indicate a separate area of concern corresponds to stable dense fibroglandular tissue. Ultrasound imaging of the right breast was performed targeted to the palpable areas of concern. In the upper outer quadrant in the 11:00 position there are multiple adjacent complicated/acorn cysts. The largest one measures 1.3 cm in size and has mobile internal debris. This correlates to the palpable area of concern noted by the patient. Located in the 6:00 distribution are also several adjacent complicated/acorn-type cysts. These also correlate to the area of concern noted by the patient in this region. IMPRESSION: 1. Stable mammographic appearance of the left breast with stable benign findings as described above. 2. The palpable areas of concern noted by the patient in both the right upper outer quadrant and in the right 6:00 distribution correlate to multiple adjacent complicated cysts. The largest cyst is located in the 11:00 position and measures 1.2 cm in size. It appears to contain mobile internal debris. 3. Grouped indeterminate calcifications right upper outer quadrant. RECOMMENDATION: Recommend stereotactic core biopsy of grouped calcifications in the right upper outer quadrant. Also, the patient has multiple complicated cysts the largest of which is located in the 11:00 position. These do correlate to the palpable areas of concern noted by the patient. Given the patient's personal history of atypical ductal hyperplasia as well as her strong family history recommend the patient undergo breast MRI evaluation prior to the stereotactic core biopsy. This will also serve to evaluate the complicated cysts noted sonographically for any associated abnormal enhancement. ACR BI-RADS CATEGORY: 4, SUSPICIOUS CAD was utilized. The standard false-negative rate of mammography is between 10% and 25%. Complex patterns or increased breast density will markedly elevate the false-negative rate of mammography. A letter, in lay terminology, with the results of this exam was given to the patient at the time of the visit. At our facility, a triangular marker is positioned over a palpable area of concern indicated by the patient. A white earth marker is placed over a visible skin lesion. A linear marker indicates a scar. Physicians Order Stereotactic Breast Biopsy Diagnosis: Abnormal Mammogram . This report was finalized on 01/18/2021 11:[address] Paty Black MD. Erica Dobbs MD IMG MAMMOGRAPHY ORDERABLE S Edited Result - Final from Last 3 Months or Most Recently Relevant to Health Maintenance Insurance [employer] Advance Directives * CPR (Attempt to Resuscitate) (Latest Code Status on File) Date Activated Date Inactivated Comments 07/30/2021 4:25 PM 07/31/2021 12:55 PM Question Answer Comments Code Status (Patient has no pulse and is not breathing): CPR (Attempt to Resuscitate) Medical Interventions (Patie nt has pulse or is breathing): Full Support Care Teams Delphi Programmer Relationship Specialty Start Date End Date Heriberto Mayen MD [address] [facility] [address] [facility] [address] [place] [id number] PCP - General Family Medicine 05/17/19
[2024-12-01 10:30] LABS: Microscopic, Urine URINE MICROSCOPIC (MICROSCOPIC)
[2024-12-01 10:40] LABS: Bilirubin,Urine Negative (Negative); Color,Urine ORANGE (Yellow); Glucose,Urine (UA) TRACE (Negative); Ketones,Urine TRACE (Negative); Leukocyte Esterase,Urine 1+ (Negative); PH,Urine 5.0 (5.0-8.5); Protein,Urine 2+ (Negative); Specific Gravity, Urine 1.020 (1.005-1.030); Urobilinogen,Urine 4.0 EU/dl (0.2)
[2024-12-01 10:53] LABS: Bacteria,Urine 2+ /lpf; RBC,Urine 50-100 #/hpf (0-3)
[2024-12-01 11:09] VITALS: BP 110/75; PULSE 65; RESP 19; TEMP 36.7; O2SAT 100
--- NOTE | 2024-12-02 09:38 | PC.NURSE ---
Urine culture results reviewed by Dr. Black. No new orders received at this time.
== END 2024-12-01 11:10 | disposition home or self-care (01) ==
PROVIDERS: Nurse Practitioner; Emergency Provider Emergency Medicine; PCP Family Medicine
DX: N39.0 Urinary tract infection, site not specified (principal); R30.0 Dysuria; R39.15 Urgency of urination; R35.0 Frequency of micturition
CPT/HCPCS: 81001; 87086; 87088; 87186; 99283

== ENCOUNTER 2025-01-23 14:00 | Outpatient (CLI) | payer OTHER, SELFPAY ==
--- NOTE | 2025-01-23 14:21 | XR_ITS ---
FINAL REPORT CLINICAL HISTORY: ACUTE PAIN RT WRIST fall last night pain to right wrist FINDINGS: RIGHT WRIST Three views demonstrate no acute fracture or dislocation. There is an old ulnar styloid process fracture. A small bone island is seen within the radial styloid. The visualized joint spaces are normally aligned. The soft tissues are unremarkable. IMPRESSION: No acute bony abnormality. Reviewed, Interpreted and Dictated by Michael Parker MD Transcribed by Marium Preciado Authenticated and [facility]
== END 2025-01-23 23:59 | disposition home or self-care (01) ==
LOC: RAD 14:02
PROVIDERS: PCP Family Medicine; Visit Provider Nurse Practitioner Family
DX: W19.XXXA Unspecified fall, initial encounter; Z87.81 Personal history of (healed) traumatic fracture; M25.531 Pain in right wrist
CPT/HCPCS: 73110

== ENCOUNTER 2025-02-16 06:50 | Outpatient (CLI) | payer OTHER, SELFPAY ==
--- OUTSIDE RECORDS SUMMARY | 2023-09-24 10:30 | XMS_ITS ---
Author Organization Vinay Address [address] [facility] [address] [place] [phone] Care Team Providers Care Art Gallery Director Name Role Phone Heriberto Mayen Primary Care Provider Tiana Kelley Unavailable [phone] Allergies No Known Allergies REASON FOR VISIT telehealth-tested positive for COVID, fever, SOB Medications Medication SIG (Take, Route, Frequency, Duration) Notes Start Date End Date Status Paxlovid (300/100) 20 x 150 MG & 10 x 100MG 3 tablets Orally Twice a day 09/24/2023 Active Bromfed DM 2-30-10 MG/5ML 5-10 ml Orally four times a day, prn 09/24/2023 Active Vital Signs Weight 175 lbs 09/24/2023 Heart Rate 00 /min 09/24/2023 Height 68 in 09/24/2023 BMI 26.61 kg/m2 09/24/2023 Encounters Encounter Location Date Provider Diagnosis [place] [facility] [address] [place] [id number] 09/24/2023 Tiana Kelley COVID-19 U07.1 Assessments Encounter Date Diagnosis (ICD Code) Assessment Notes Treatment Notes Treatment Clinical Notes Section Notes 09/24/2023 COVID-19 (ICD-10 - U07.1) Fluids, rest, supportive measures for fever and symptoms relief, discussed covid vitamins and isolation period. 09/24/2023 Other Discussed conservative measures at this time. Very strict return to work precautions given. Reviewed isolation precautions with patient Plan Of Treatment Medication Medication Name Sig Start Date Stop Date Notes Paxlovid (300/100) 20 x 150 MG & 10 x 100MG 3 tablets Orally Twice a day 09/24/2023 Bromfed DM 2-30-10 MG/5ML 5-10 ml Orally four times a day, prn 09/24/2023 Treatment Notes Assessment Notes COVID-19 Fluids, rest, suppor tive measures for fever and symptoms relief, discussed covid vitamins and isolation period. Other Discussed conservati ve measures at this time. Very strict return to work precautions given. Reviewed isolation precautions with patient Next Appt Details Follow Up: prn, Reason: Progress Notes * Cora DHILLONDOB:[birth year] (54 yo F)Acc No.[id number]:09/24/2023 Progress Notes Patient: Cora ROWLEY Provider: AMI Gomez :1970 A ge:53 Y S ex:Female Date:09/24/2023 Address:[address] [place] [address], [id number] Pcp:Heriberto Mayen Subjective: * Chief Complaints: * 1 . telehealth-tested positive for COVID, fever, SOB. * HPI: E NT/respiratory: 53 year old female presents with c/o cough p atient complains of dry cough for 2 days. Associated with fever of 102 and body aches. Pt states she has been taking Motrin to help relieve symptoms. Pt had positive home Covid test this morning. C OVID-19 exposure screening questions: travel N o travel out of the country in the past 14 days prior to symptom onset. l iving situation [place] in home with family. S killed care exposure n one. h ealthcare worker n o. C OVID exposure I n the past 14 days prior to symptoms onset, patient has NOT been exposed to someone who has tested positive for novel coronavirus. * ROS: C ARDIOLOGY: no D izziness. n o C hest pain. D ERMATOLOGY: no R christina. n o H [place]. G ASTROENTEROLOGY: no N ausea. n o V omiting. n o D iarrhea.? U ROLOGY: no D ifficulty urinating. n o B lood in urine. n o F requent urination. * Medical History: A llergic rhinitis, 30 pack year smoking history, quit in 2013. * Surgical History: T ubal Ligation 2000, C Section , RT Breast Biopsy, normal 2009, LT Breast Lumpectomy 07/19/2019, bilatreral mastectomy 07/2021. * Family History: F ather: alive 68 yrs, diagnosed with Heart Disease. M other: alive 64 yrs. 1 brother(s) . 2 son(s) , 1 daughter(s) . . pt. mother was diagnosis with breast cancer last week, (RT). * Social History: C URRENT TOBACCO USE S moking Status: Patient does NOT smoke. C affeine: yes, frequency:coffee,tea and soda. Home smoke detector use: yes. Marital Status: . Past smoking status: PPD: , years: ,determination:. Alcohol: No. Sexually active: yes. * Medications: D iscontinued Melatonin 10-10 MG Tablet Extended Release 1 tab(s) orally once daily , Discontinued Paxil 10 MG Tablet 1 tab(s) orally once a day , Notes to Pharmacist: patient needs appt, Discontinued Cyclobenzaprine HCl 5 MG Tablet 1 or 2 tab(s) orally 3 times a day as needed , Discontinued Medrol 4 MG Tablet Therapy Pack as directed orally , Discontinued Cyclobenzaprine HCl 5 MG Tablet 1 tab(s) orally 3 times a day as needed , Medication List reviewed and reconciled with the patient * Allergies: N .K.D.A. Objective: * Vitals: W t:175, Temp:97.5, BP:00, HR:00, Nurse:sandra, Ht: 68, BMI:26.61. * Examination: E NT/Respiratory: General Appearance: Audio only, coughing. ? Assessment: * Assessment: 1. C [place]-19 - U07.1 (Primary) Plan: * Treatment: 2. O thers Notes: Discussed conservative measures at this time. Very strict return to work precautions given. Reviewed isolation precautions with patient * Procedure Codes: 9 9213 OFFICE VIST, EST PT. LEVEL 3, TELEHEALTH, Modifiers: 95 * Preventive Medicine: Counseling: T elehealth Consent: T elehealth VisitDiscussed with patient: You have chosen to receive care through the use of telemedicine. Telemedicine enables health care providers at different locations to provide safe, effective and convenient care through the use of technology. As with any health care service, there are risks associated with the use of telemedicine, including equipment failure, poor image resolution and computer information science professor issues. You also understand that I cannot examine you and that you may need to come to clinic to complete the assessment.Patient consents to the use of telemedicine in his/her medical care today as well as the billing of their insurance for this visit. Patient verbally understands the risks and benefits of telemedicine as explained. All questions regarding telemedicine answered.I conducted this encounter from an office setting via secure, live, [id number] video conference with the patient who was located in their home. Prior to the interview, the risks and benefits of telemedicine were discussed with the patient and verbal consent was obtained.. * Follow Up: p rn * Images: Billing Information: * Visit Code: * Procedure Codes: 91902 OFFICE VIST, EST PT. LEVEL 3, TELEHEALTH. Modifiers: 95 * Electronic signature of AMI Mchugh on 02/16/2025 at 06:52 AM EST Sign off status: Pending * Provider: AMI Gomez Date: 0 09/24/2023 Generated for Ruddy monahan/Chance/Ayadsmitting on: 1 04/19/2024 06:52 AM EST History and Physical Notes * HPI (History of Present Illness) Category Sub-Category Detail Notes Category Not es ENT/respiratory cough patient complain s of dry cough for 2 days. Associated with fever of 102 and body aches. Pt states she has been taking Motrin to help relieve symptoms. 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
--- OUTSIDE RECORDS SUMMARY | 2024-01-21 04:15 | XMS_ITS ---
Author Organization [facility] Address [facility] [address] [place] [id number] Care Team Providers Care Operating Table Assembler Name Role Phone Heriberto Mayen Primary Care Provider Tiana Kelley Unavailable [phone] Allergies No Known Allergies Results Component Value Reference Range Notes CBC Venipuncture (in house) Reviewed date:01/21/2024 02:05:33 PM Interpretation: Performing Lab: Notes/Report: wbc 5.3 3.5 - 10 lymph 19.4 15 - 50 mid 5.4 2 - 15 gran 75.2 35 - 80 rbc 4.40 3.5 - 5.5 hgb 13.5 11.5 - 16.5 hct 39.2 35 - 55 mcv 88.9 75 - 100 mch 30.7 25 - 35 mchc 34.5 31 - 38 platlet 207 100 - 400 P-Vitamin B12 Reviewed date:01/22/2024 09:04:19 AM Interpretation: Performing Lab: Notes/Report: Test performed by [facility] [address] [place], [place] [address] , [address], [place] [address] Rafael Lyons MD, Quarrying Specialist CLIA: [id number] Vitamin B12 131 699-5298 pg/mL P-Comprehensive Metabolic Pa chase (CMP) Reviewed date:01/22/2024 09:04:19 AM Interpretation: Performing Lab: Notes/Report: Test performed by [facility] [address] [place], [place] [address] Susan Feliciano, Mayra [address], [place] [address] Rafael Lyons MD, Quarrying Specialist CLIA: [id number] Sodium 143 135-145 mmol/L Potassium 4.3 3.5-5.3 mmol/L Chloride 103 97-108 mmol/L CO2 26 22-32 mmol/L Glucose 95 65-99 mg/dL BUN 14 6-20 mg/dL Creatinine 0.73 0.50-1.00 mg/dL Calcium 9.4 8.6-10.4 mg/dL eGFR by Creatinine 97 >59 mL/min/1.73m2 Protein 6.7 6.0-8.3 g/dL Albumin 4.5 3.5-5.3 g/dL Alkaline Phosphatase 103 35-121 IU/L ALT (SGPT) 14 <5-47 IU/L AST (SGOT) 19 <5-40 IU/L Bilirubin, Total 0.4 <0.2-1.2 mg/dL A/G Ratio 2.0 1.1-2.5 P-Lipid Panel Reviewed date:01/22/2024 09:04:19 AM Interpretation: Performing Lab: Notes/Report: Test performed by [employer], [place] [address] [place] [address] , [place] [address] Rafael Lyons MD, Quarrying Specialist CLIA: [id number] Cholesterol 175 <200 mg/dL Triglycerides 88 <150 mg/dL HDL Cholesterol 89 >39 mg/dL Cholesterol / HDL Ratio 1.97 0.00-4.44 Ratio Non-HDL Cholesterol 86 <130 mg/dL LDL Cholesterol (Calculation) 68 <130 mg/dL LDL Cholesterol Levels* Less than 100 mg/dL Optimal 100 to 129 mg/dL Near Optimal/ Above Optimal 130 to 159 mg/dL Borderline High 160 to 189 mg/dL High 190 mg/dL and above Very High * Categories as recommended by the 2004 ATPIII guidelines LDL/HDL Ratio 0.8 <3.3 Ratio LDL Cholesterol Patient History Test Date: 01/21/2024 LDL Results: 68 Units: mg/dL % Change: - P-TSH reflex to FT4 Reviewed date:01/22/2024 09:04:19 AM Interpretation: Performing Lab: Notes/Report: Test performed by [facility] , [address], [place] [address] Rafael Lyons MD, Quarrying Specialist CLIA: [id number] TSH reflex to FT4 1.89 0.43-5.25 mU/L REASON FOR VISIT Anxiety Problems Problem Type SNOMED Code ICD Code Onset Dates Problem Status W/U Status Risk Notes Problem Mixed anxiety and depressive disorder (303554710) Depression with anxiety (F41.8) Active confirmed Vital Signs Weight 166.0 lbs 01/21/2024 Blood pressure systolic 118 mm Hg 01/21/20 24 Blood pressure diastolic 64 mm Hg 024 Heart Rate 73 /min 01/21/2024 Height 68 in 01/21/2024 BMI 25.24 kg/m2 01/21/2024 Encounters Encounter Location Date Provider Diagnosis [facility] [address] [facility] [address] [place], [place] [phone] 01/21/2024 Tiana Kelley Brain fog R41.89 ; Depression with anxiety F41.8 ; Lip numbness R20.0 and Screening, lipid Z13.220 Assessments Encounter Date Diagnosis (ICD Code) Assessment Notes Treatment Notes Treatment Clinical Notes Section Notes 01/21/2024 Brain fog (ICD-10 - R41.89) 01/21/2024 Depression with anxiety (ICD-10 - F41.8) Discussed genetic testing and patient wishes to proceed. She will go get a genetic swab done today and schedule an appt with Abbey to go over the testing and initiate medication. 01/21/2024 Lip numbness (ICD-10 - R20.0) 01/21/2024 Screening, lipid (ICD-10 - Z13.220) Plan Of Treatment Treatment Notes Assessment Notes Depression with anxiety Discussed geneti c testing and patient wishes to proceed. She will go get a genetic swab done today and schedule an appt with Abbey to go over the testing and initiate medication. Next Appt Details Follow Up: via phone to repo rt test results, Reason: Progress Notes * Cora DHILLONDOB:[birth year] (54 yo F)Acc No.[id number]:01/21/2024 Progress Notes Patient: Cora ROWLEY Provider: AMI Gomez :1970 A ge:53 Y S ex:Female Date:01/21/2024 Address:[address] [place] [address], [place], [id number] Pcp:Heriberto Mayen Subjective: * Chief Complaints: * 1 . Anxiety. * HPI: P sychology: 53 year old female presents with c/o Anxiety P t is here today with c/o anxiety and possible depression. Pt sts she has trouble sleeping and concentrating and sts she always feels very anxious. She has been on numerous medications in the past but always stops them due to side effects or because she doesn't think they are helping. She has had brain fog and some tingling in her lips at times when she gets very stressed.. * ROS: C ARDIOLOGY: no D izziness. [...] Alcohol: No. Sexually active: yes. * Medications: N one * Allergies: N .K.D.A. Objective: * Vitals: W t:166.0, Temp:98.9, BP:118/64, HR:73, O2 Sat:100% on RA, Nurse:ROGER, Ht: 68, BMI:25.24. * Examination: P sychology: Grooming : a dequate. E ye contact : n ormal. M ood : p leasant. G eneral Examination: General Appearance: N AD. H EENT: u nremarkable.?Oral cavity: n o lesions, mucosa moist and WNL, no erythema. N duc: s upple, no lymphadenopathy. C hest: n ormal shape and expansion. H eart: R SR. L ungs: c lear to auscultation. A bdomen: bowel sounds present, soft and nontender, no organomegaly or masses, no guarding or rigidity. N eurologic Exam: I ntact, gait normal. S kin: n ormal, no rash. P eripheral pulses: n ormal (2+) bilaterally. E xtremities: n o leg edema. Assessment: * Assessment: 1. D epression with anxiety - F41.8 (Primary) 2 . B rain fog - R41.89 ? 3 . L ip numbness - R20.0 4 . S creening, lipid - Z13.220 ? Plan: * Treatment: 2. B rain fog L AB: P-Vitamin B12 (Collection Date & Time - 01/21/2024 08:55 AM) Value Reference Range V itamin B12 402 459-7290 - pg/mL * Tiana Kelley Jayden 01/22/2024 9: 04:13 AM > see TE ?LAB: P-Comprehensive Metabolic Panel (CMP) (Collection Date & Time - 01/21/2024 08:55 AM)* Value Reference Range A /G Ratio 2.0 1.1-2.5 - * A lbumin 4.5 3.5-5.3 - g/dL * A lkaline Phosphatase 103 35-121 - IU/L * A LT (SGPT) 14 <5-47 - IU/L * A ST (SGOT) 19 <5-40 - IU/L * B ilirubin, Total 0.4 <0.2-1.2 - mg/dL * B UN 14 6-20 - mg/dL * C alcium 9.4 8.6-10.4 - mg/dL * C hloride 103 97-108 - mmol/L * C O2 26 22-32 - mmol/L * C reatinine 0.73 0.50-1.00 - mg/dL * G lucose 95 65-99 - mg/dL * P otassium 4.3 3.5-5.3 - mmol/L * S odium 143 135-145 - mmol/L * P rotein 6.7 6.0-8.3 - g/dL * e GFR by Creatinine 97 >59 - mL/min/1.73m2 * Tiana Kelley 01/22/2024 9: 04:13 AM > see TE ?LAB: P-TSH reflex to FT4 (Collection Date & Time - 01/21/2024 08:55 AM)* Value Reference Range T SH reflex to FT4 1.89 0.43-5.25 - mU/L * Tiana Kelley 01/22/2024 9: 04:13 AM > see TE 3.?Lip numbness?LAB: CBC Venipuncture (in house) (Collection Date & Time - 01/21/2024)* Value Reference Range w bc 5.3 3.5 - 10 * l ymph 19.4 15 - 50 * m id 5.4 2 - 15 * g ran 75.2 35 - 80 * r bc 4.40 3.5 - 5.5 * h gb 13.5 11.5 - 16.5 * h ct 39.2 35 - 55 * m cv 88.9 75 - 100 * m ch 30.7 25 - 35 * m chc 34.5 31 - 38 * p latlet 207 100 - 400 * Nimo Boston 01/21/2024 10:02 :03 AM > , Provider reviewed results while patient in office.Tiana Kelley 01/21/2024 2:05:32 PM > 4.?Screening, lipid?LAB: P-Lipid Panel (Collection Date & Time - 01/21/2024 08:55 AM)* Value Reference Range C holesterol / HDL Ratio 1.97 0.00-4.44 - Ratio * C holesterol 175 <200 - mg/dL * H DL Cholesterol 89 >39 - mg/dL * L DL Cholesterol (Calculation) 68 <130 - mg/d L * L DL/HDL Ratio 0.8 <3.3 - Ratio * N on-HDL Cholesterol 86 <130 - mg/dL * T riglycerides 88 <150 - mg/dL * WarrenTiana Carpenter 01/22/2024 9: 04:13 AM > see TE * Procedure Codes: 9 4760 [place], [address] CBC WITH AUTO DIFF, 17724 VENIPUNCT, ROUTINE* * Follow Up: v ia phone to report test results * Images: Billing Information: * Visit Code: 95060 Office Visit, Est Pt., Level 4. * Procedure Codes: [address] [place]. [address] CBC WITH AUTO DIFF. 13116 VENIPUNCT, ROUTINE*. * Electronic signature of AMI Mchugh on 02/16/2025 at 06:53 AM EST Sign off status: Pending * Provider: AMI Gomez Date: 03/22/2023 Generated for Ruddy monahan/Chance/Ayadsmitting on: 04/19/2024 06:53 AM EST History and Physical Notes * HPI (History of Present Illness) Category Sub-Category Detail Notes Category Not es Psychology Anxiety Pt is here today with c/o anxiety and possible depression. Pt sts she has trouble sleeping and concentrating and sts she always feels very anxious. She has been on numerous medications in the past but always stops them due to side effects or because she doesn't think they are helping. She has had brain fog and some tingling in her lips at times when she gets very stressed. Examination Category Sub-Category Detail Notes Category Not es General Examination HEENT: unremarkable Heart: RSR Lungs: clear to auscultatio n Abdomen: bowel sounds present , soft and nontender, no organomegaly or masses, no guarding or rigidity Extremities: no leg edema General Appearance: NAD Skin: normal, no rash Neurologic Exam: Intact, gait normal Neck: supple, no lymphaden opathy Oral cavity: no lesions, mucosa m oist and WNL, no erythema Peripheral pulses: normal (2+) bilatera lly Chest: normal shape and exp ansion Psychology Grooming : adequate Eye contact : normal Mood : pleasant
--- OUTSIDE RECORDS SUMMARY | 2024-09-21 09:00 | XMS_ITS ---
Author Organization [facility] [facility] Address [address] [place] [id number] Care Team Providers Care Car Blocker Name Role Phone Heriberto Mayen Primary Care Provider Tiana Kelley Unavailable [phone] Allergies No Known Allergies Results Component Value Reference Range Notes CBC Venipuncture (in house) Reviewed date:09/22/2024 03:13:45 PM Interpretation:Normal Performing Lab: Notes/Report: Normal wbc 4.8 3.5 - 10 lymph 24.5 15 - 50 mid 6.2 2 - 15 gran 69.3 35 - 80 rbc 4.73 3.5 - 5.5 hgb 14.6 11.5 - 16.5 hct 41.9 35 - 55 mcv 88.7 75 - 100 mch 31.0 25 - 35 mchc 34.9 31 - 38 platlet 220 100 - 400 P-Vitamin B12 Reviewed date:09/22/2024 03:13:54 PM Interpretation:Normal Performing Lab: Notes/Report: Test performed by [facility] [address] [place], [place] [id number] , [address], [place] [address] Rafael Lyons MD, Sheet Metal Worker CLIA: [id number] Vitamin B12 077 140-4416 pg/mL P-Comprehensive Metabolic Pa chase (CMP) Reviewed date:09/22/2024 03:13:37 PM Interpretation:Normal Performing Lab: Notes/Report: Test performed by [facility] [address] [place], [place] [id number] , [address], [place] [address] Rafael Lyons MD, Sheet Metal Worker CLIA: [id number] Sodium 141 135-145 mmol/L Potassium 4.4 3.5-5.3 mmol/L Chloride 106 97-108 mmol/L CO2 24 20-32 mmol/L Glucose 89 65-99 mg/dL BUN 19 6-20 mg/dL Creatinine 0.74 0.50-1.00 mg/dL Calcium 9.8 8.6-10.4 mg/dL eGFR by Creatinine 95 >59 mL/min/1.73m2 Protein 6.9 6.0-8.3 g/dL Albumin 4.5 3.5-5.3 g/dL Alkaline Phosphatase 113 35-121 IU/L ALT (SGPT) 15 <5-47 IU/L AST (SGOT) 18 <5-40 IU/L Bilirubin, Total 0.3 <0.2-1.2 mg/dL A/G Ratio 1.9 1.1-2.5 P-Magnesium Reviewed date:09/22/2024 03:14:12 PM Interpretation:Normal Performing Lab: Notes/Report: Test performed by [facility] [address] [place] [address] , [address], [place] [address] Rafael Lyons MD, Sheet Metal Worker CLIA: [id number] Magnesium 2.1 1.6-2.4 mg/dL P-TSH reflex to FT4 Reviewed date:09/22/2024 03:13:27 PM Interpretation:Normal Performing Lab: Notes/Report: Test performed by [facility] [address] [place] [address] , [address], [place] [address] Rafael Lyons MD, Sheet Metal Worker CLIA: [id number] TSH reflex to FT4 2.69 0.43-5.25 mU/L P-Vitamin D 25-Hydroxy Reviewed date:09/22/2024 03:14:03 PM Interpretation:Normal Performing Lab: Notes/Report: Test performed by [facility] [address] [place] [address] , [address], [place] [address] Rafael Lyons MD, Sheet Metal Worker CLIA: [id number] Vitamin D 25-Hydroxy 33.7 30.0-100.0 ng/mL Interpretation of Vitamin D 25 OH: < 20 ng/mL - Deficiency 20 - 29 ng/mL - Insufficiency 30 - 100 ng/mL - Sufficiency > 100 ng/mL - Super-therapeutic- toxicity may occur above this level. Clinical correlation required. REASON FOR VISIT not feeling well needs lab work Medications Medication SIG (Take, Route, Frequency, Duration) Notes Start Date End Date Status Benadryl Allergy Extra Str 50 MG 1 tablet at bedtime as needed Orally Once a day Active Vitamin B12 1000 MCG 1 tablet Orally Onc e a day Active hydrOXYzine HCl 25 MG 1 tablet Orally 30 minutes before sleep, prn 09/21/2024 Active Problems Problem Type SNOMED Code ICD Code Onset Dates Problem Status W/U Status Risk Notes Problem Chronic insomnia (843110060) Chronic insomnia (F51.04) Active confirmed Vital Signs Weight 167.4 lbs 09/21/2024 Blood pressure systolic 120 mm Hg 09/22/19 25 Blood pressure diastolic 70 mm Hg 025 Heart Rate 75 /min 09/21/2024 Height 68 in 09/21/2024 BMI 25.45 kg/m2 09/21/2024 Encounters Encounter Location Date Provider Diagnosis [facility] [address] [facility] [address] [place] [address], [place] [id number] 09/21/2024 Tiana Kelley Other fatigue R53.83 ; Dizziness R42 ; Chronic insomnia F51.04 ; Vitamin B12 deficiency E53.8 and BMI 25.0-25.9,adult Z68.25 Assessments Encounter Date Diagnosis (ICD Code) Assessment Notes Treatment Notes Treatment Clinical Notes Section Notes 09/21/2024 Other fatigue (ICD-10 - R53.83) 09/21/2024 Dizziness (ICD-10 - R42) 09/21/2024 Chronic insomnia (ICD-10 - F51.04) 09/21/2024 Vitamin B12 deficiency (ICD-10 - E53.8) 09/21/2024 BMI 25.0-25.9,adult (ICD-10 - Z68.25) Plan Of Treatment Medication Medication Name Sig Start Date Stop Date Notes hydrOXYzine HCl 25 MG 1 tablet Orally 30 minutes before sleep, prn 09/21/2024 Next Appt Details Follow Up: via phone to repo rt test results, Reason: Progress Notes * Cora DHILLONDOB:[birth year] (54 yo F)Acc No.[id number]:09/21/2024 Progress Notes Patient: Iza Cora MENDEZ Provider: AMI Gomez :1970 A ge:54 Y S ex:Female Date:09/21/2024 Address:[address], [place], [id number] Pcp:Heriberto Mayen Subjective: * Chief Complaints: * 1 . Not feeling well needs lab work. * HPI: H PI: Patient is here today for P t here she is not been feeling good for a few weeks. Pt states she has not been sleeping at night. Pt states that Thursday she was at work and got dizziness so she went home. Pt wants B12 checked today. * ROS: D ERMATOLOGY: no R christina. n o H wilton. G ASTROENTEROLOGY: no N ausea. n o V omiting. n o D iarrhea.? U ROLOGY: no D ifficulty urinating. n o B lood in urine. * Medical History: A llergic rhinitis, 30 [...] Alcohol: No. Sexually active: yes. * Medications: T aking Vitamin B12 1000 MCG Tablet 1 tablet Orally Once a day , Taking Benadryl Allergy Extra Str 50 MG Tablet 1 tablet at bedtime as needed Orally Once a day , Discontinued Vit E66-Kootmlmwre-Alqe-Jhql - Solution as directed Intramuscular , Medication List reviewed and reconciled with the patient * Allergies: N .K.D.A. Objective: * Vitals: W t: 167.4, Temp: 97.9, BP: 120/70, HR: 75, Nurse: pe, Ht: 68, BMI:25.45. * Examination: G eneral Examination: General Appearance: N AD. H EENT: u nremarkable.?Oral cavity: n o lesions, mucosa moist and WNL, no erythema. N duc: s upple, no lymphadenopathy. C hest: n ormal shape and expansion. H eart: R SR. L ungs: c lear to auscultation. A bdomen: b owel sounds present, soft and nontender. N eurologic Exam: I ntact, gait normal. S kin: n ormal, no rash. P eripheral pulses: n ormal (2+) bilaterally. E xtremities: n o leg edema. Assessment: * Assessment: 1. O ther fatigue - R53.83 (Primary) 2 . D izziness - R42 3 . C hronic insomnia - F51.04 4 . V itamin B12 deficiency - E53.8 5 . B [place] 25.0-25.9,adult - Z68.25 Plan: * Treatment: Value Reference Range A /G Ratio 1.9 1.1-2.5 - * A lbumin 4.5 3.5-5.3 - g/dL * A lkaline Phosphatase 113 35-121 - IU/L * A LT (SGPT) 15 <5-47 - IU/L * A ST (SGOT) 18 <5-40 - IU/L * B ilirubin, Total 0.3 <0.2-1.2 - mg/dL * B UN 19 6-20 - mg/dL * C alcium 9.8 8.6-10.4 - mg/dL * C hloride 106 97-108 - mmol/L * C O2 24 20-32 - mmol/L * C reatinine 0.74 0.50-1.00 - mg/dL * G lucose 89 65-99 - mg/dL * P otassium 4.4 3.5-5.3 - mmol/L * S odium 141 135-145 - mmol/L * P rotein 6.9 6.0-8.3 - g/dL * e GFR by Creatinine 95 >59 - mL/min/1.73m2 * Tiana Kelley 09/21/2024 02 :28:23 PM EDT >room [facility] 09/22/2024 03:13:32 PM EDT >pt informed ?LAB: P-Magnesium (Collection Date & Time - 09/21/2024 01:33 PM)?Normal* Value Reference Range M agnesium 2.1 1.6-2.4 - mg/dL * Tiana Kelley 09/21/2024 02 :28:23 PM EDT >[facility] 09/22/2024 03:14:07 PM EDT >pt informed ?LAB: P-TSH reflex to FT4 (Collection Date & Time - 09/21/2024 01:33 PM)? Normal* Value Reference Range T SH reflex to FT4 2.69 0.43-5.25 - mU/L * Tiana Kelley 09/21/2024 02 :28:23 PM EDT >[facility] 09/22/2024 03:13:03 PM EDT >pt informed ?LAB: P-Vitamin D 25-Hydroxy (Collection Date & Time - 09/21/2024 01:33 PM)? Normal* Value Reference Range V itamin D 25-Hydroxy 33.7 30.0-100.0 - ng/mL * Tiana Kelley 09/21/2024 02 :28:23 PM EDT >[facility] 09/22/2024 03:13:59 PM EDT >pt informed ?LAB: CBC Venipuncture (in house) (Collection Date & Time - 09/21/2024)? Normal* Value Reference Range w bc 4.8 3.5 - 10 * l ymph 24.5 15 - 50 * m id 6.2 2 - 15 * g ran 69.3 35 - 80 * r bc 4.73 3.5 - 5.5 * h gb 14.6 11.5 - 16.5 * h ct 41.9 35 - 55 * m cv 88.7 75 - 100 * m ch 31.0 25 - 35 * m chc 34.9 31 - 38 * p latlet 220 100 - 400 * Bettie Garzon 09/21/2024 03 :39:43 PM EDT >[facility] 09/22/2024 03:13:41 PM EDT >pt informed 2.?Chronic insomnia? Start hydrOXYzine HCl Tablet, 25 MG, 1 tablet, Orally, 30 minutes before sleep, prn, 30, Refills 0. ?3.?Vitamin B12 deficiency?LAB: P-Vitamin B12 (Collection Date & Time - 09/21/2024 01:33 PM)?Normal* Value Reference Range V itamin B12 025 131-3499 - pg/mL * Tiana Kelley 09/21/2024 02 :28:23 PM EDT >room B, [facility] 09/22/2024 03:13:50 PM EDT >pt informed * Procedure Codes: 8 5025 CBC WITH AUTO DIFF, 1036F TOBACCO NON-USER, G8783 BP SCR PRFRM RCMDD DEFIND SCR INTVL, G8752 MOST RECENT SYSTOLIC BP < 140MM HG, G8754 MOST RECENT DIASTOLIC BP < 90MM HG, G8420 BMI<30 AND >=22 CALC & DOCU * Follow Up: v ia phone to report test results * Images: Billing Information: * Visit Code: 06017 Office Visit, Est Pt., Level 4. * Procedure Codes: 42786 CBC WITH AUTO DIFF. 1036F TOBACCO NON-USER. G8783 BP SCR PRFRM RCMDD DEFIND SCR INTVL. G8752 MOST RECENT SYSTOLIC BP < 140MM HG. G8754 MOST RECENT DIASTOLIC BP < 90MM HG. G8420 BMI<30 AND >=22 CALC & DOCU. * Electronic signature of AMI Mchugh on 02/16/2025 at 06:52 AM EST Sign off status: Pending * Provider: AMI Gomez Date: 0 09/21/2024 Generated for Ruddy monahan/Chance/Errol on: 1 04/19/2024 06:52 AM EST History and Physical Notes * HPI (History of Present Illness) Category Sub-Category Detail Notes Category Not es HPI Patient is here today for Pt her e she is not been feeling good for a few weeks. Pt states she has not been sleeping at night. Pt states that Thursday she was at work and got dizziness so she went home. Pt wants B12 checked today Examination Category Sub-Category Detail Notes Category Not es General Examination HEENT: unremarkable Heart: RSR Lungs: clear to auscultatio n Abdomen: bowel sounds present , soft and nontender Extremities: no leg edema General Appearance: NAD Skin: normal, no rash Neurologic Exam: Intact, gait normal Neck: supple, no lymphaden opathy Oral cavity: no lesions, mucosa m oist and WNL, no erythema Peripheral pulses: normal (2+) bilatera lly Chest: normal shape and exp ansion
--- OUTSIDE RECORDS SUMMARY | 2024-12-01 08:45 | XMS_ITS ---
Author Organization [facility] Address [address] [facility] [address] [facility] [address] [place] [id number] Care Team Providers Care Merchandise Flow Team Member Name Role Phone Heriberto Mayen Primary Care Provider [phone] Tiana Kelley [phone] REASON FOR VISIT poss. UTI Encounters Encounter Location Date Provider Diagnosis [place] [address] [facility] [address] [place] [id number] 12/01/2024 Tiana Kelley Plan Of Treatment No Information Progress Notes * Cora DHILLONDOB:[birth year] (54 yo F)Acc No.[id number]:12/01/2024 Progress Notes Patient: Akosua ROWLEYzabeth Provider: AMI Gomez :1970 A ge:54 Y S ex:Female Date:12/01/2024 Address[place], [id number] Pcp:Heriberto Mayen Subjective: * Chief Complaints: * 1 . poss. UTI. * Medical History: Objective: * Vitals: Assessment: Plan: * Treatment: * Images: Billing Information: * Visit Code: * Procedure Codes: * Electronic signature of AMI Mchugh on 02/16/2025 at 06:53 AM EST Sign off status: Pending * Provider: AMI Gomez Date: 0 12/01/2024 Generated for Printi ng/Faxing/eTransmitting on: 1 04/19/2024 06:53 AM EST
--- OUTSIDE RECORDS SUMMARY | 2025-01-23 08:30 | XMS_ITS ---
Author Organization [facility] Address [address] [facility] [address] [place] [id number] Care Team Providers Care Digital Content Manager Name Role Phone [place] Heriberto Primary Care Provider Mala Fuller Unavailable [phone] Allergies No Known Allergies Results Component Value Reference Range Notes X ray : Wrist, right Reviewed date:01/24/2025 12:02:42 PM Interpretation: Performing Lab: Notes/Report: REASON FOR VISIT fell and hurt right wrist Medications Medication SIG (Take, Route, Frequency, Duration) Notes Start Date End Date Status hydrOXYzine HCl 25 MG 1 tablet as needed 30 minutes before sleep Orally daily; Duration: 30 days Active Benadryl Allergy Extra Str 50 MG 1 tablet at bedtime as needed Orally Once a day Active Vitamin B12 1000 MCG 1 tablet Orally Onc e a day Active Wrist Splint/Cock-Up/Right L - as directed 01/23/2025 Active Vital Signs Weight 172 lbs 01/23/2025 Blood pressure systolic 124 mm Hg 01/24/20 25 Blood pressure diastolic 78 mm Hg 025 Heart Rate 72 /min 01/23/2025 Height 68 in 01/23/2025 BMI 26.15 kg/m2 01/23/2025 Encounters Encounter Location Date Provider Diagnosis [place] [address] [place] [address] [place] [id number] 01/23/2025 Mala Fuller Acute pain of right wrist M25.531 and Closed fracture of distal end of right radius, unspecified fracture morphology, initial encounter S52.501A Assessments Encounter Date Diagnosis (ICD Code) Assessment Notes Treatment Notes Treatment Clinical Notes Section Notes 01/23/2025 Acute pain of right wrist (ICD-10 - M25.531) 01/23/2025 Closed fracture of distal end of right radius, unspecified fracture morphology, initial encounter (ICD-10 - S52.501A) x ray reviewed with Dr. Mayen; also reviewed with pt; will wear wrist splint all of the time except to shower; NSAIDS, ice and elevate; FU x ray and visit in 4 weeks Plan Of Treatment Medication Medication Name Sig Start Date Stop Date Notes Wrist Splint/Cock-Up/Right L - as directed 01/23/2025 Treatment Notes Assessment Notes Closed fracture of distal en d of right radius, unspecified fracture morphology, initial encounter x ray reviewed with Dr. Mayen; also reviewed with pt; will wear wrist splint all of the time except to shower; NSAIDS, ice and elevate; FU x ray and visit in 4 weeks Future Test Test Name Order Date X ray : Wrist, right 02/13/2025 Next Appt Details Follow Up: with xray,4 Weeks , Reason: Progress Notes * Cora DHILLONDOB:[birth year] (54 yo F)Acc No.[id number]:01/23/2025 Progress Notes Patient: Iza MENDEZ Cora Provider: KALLI Yan :1970 A ge:54 Y S ex:Female Date:01/23/2025 Address:[address] [place] [address] [place], [place], [phone] Pcp:Heriberto Mayen Subjective: * Chief Complaints: * 1 . Fell and hurt right wrist. * HPI: W rist/Hand: She is right-handed; she has been elevating the right hand and icing and taking Ibuprofen; She has been wearing a soft wrist splint;. 54 year old female presents with c/o radiation of pain. c/o swelling. c/o tingling numbness. c/o fall P t states she fell last night at home and she hurt her right wrist. Pt states nothing else hurts, and she did not hit anything else. Denies : Previous Injury. * ROS: D ERMATOLOGY: no R christina. [...] as needed Orally Once a day , Taking hydrOXYzine HCl 25 MG Tablet 1 tablet as needed 30 minutes before sleep Orally daily , Medication List reviewed and reconciled with the patient * Allergies: N .K.D.A. Objective: * Vitals: W t: 172, Temp: 97.8, BP: 124/78, HR: 72, Nurse: pe, Ht: 68, BMI:26.15. * Examination: G eneral Examination: General Appearance: N AD, appears healthy, well nourished and hydrated. W rist / Hand: Wrist/Hand: r ight; some edema of the hand. I nspection: c irculation intact. R danielle of motion: r estricted, painful movements. P alpation:?tenderness on scaphoid bone. Assessment: * Assessment: 1. A cute pain of right wrist - M25.531 (Primary) S pecify :landed on right wrist with a fall 2 . C losed fracture of distal end of right radius, unspecified fracture morphology, initial encounter - S54.772A Plan: * Treatment: 2.?Closed fracture of distal end of right radius, unspecified fracture morphology, initial encounter? Start Wrist Splint/Cock-Up/Right L Miscellaneous, -, as directed.?Imaging: X ray : Wrist, right (Ordered for 02/13/2025) Notes: x ray reviewed with Dr. Mayen; also reviewed with pt; will wear wrist splint all of the time except to shower; NSAIDS, ice and elevate; FU x ray and visit in 4 weeks?? * Follow Up: w ith xray,4 Weeks * Images: Billing Information: * Visit Code: 30645 Office Visit, Est Pt., Level 3. * Procedure Codes: * Electronic signature of Lis Fuller APRN on 02/16/2025 at 06:53 AM EST Sign off status: Pending * Provider: KALLI Yan Date: 03/25/2024 Generated for Ruddy monahan/Chance/Errol on: 04/19/2024 06:53 AM EST History and Physical Notes * HPI (History of Present Illness) Category Sub-Category Detail Notes Category Not es Wrist/Hand fall Pt states she fe ll last night at home and she hurt her right wrist. Pt states nothing else hurts, and she did not hit anything else Previous Injury swelling tingling numbness radiation of pain Examination Category Sub-Category Detail Notes Category Not es General Examination General Appearance: NAD, shell ears healthy, well nourished and hydrated Wrist / Hand Inspection: circulation intact Wrist/Hand: right; some edema of the hand Range of motion: restricted, painful movements Palpation: tenderness on scapho id bone
--- OUTSIDE RECORDS SUMMARY | 2025-02-13 05:30 | XMS_ITS ---
Author Organization [place] Address [address] [facility] [address] [place] [id number] Care Team Providers Care Elementary Math Tutor Name Role Phone Heriberto Mayen Primary Care Provider [phone] Mala Fuller Unavailable [phone] Allergies No Known Allergies REASON FOR VISIT F/U on wrist Medications Medication SIG (Take, Route, Frequency, Duration) Notes Start Date End Date Status hydrOXYzine HCl 25 MG 1 tablet as needed 30 minutes before sleep Orally daily; Duration: 30 days Active Wrist Splint/Cock-Up/Right L - as directed 01/23/2025 Active Benadryl Allergy Extra Str 50 MG 1 tablet at bedtime as needed Orally Once a day Active Vitamin B12 1000 MCG 1 tablet Orally Onc e a day Active Vital Signs Weight 170.2 lbs 02/13/2025 Blood pressure systolic 128 mm Hg 02/14/20 25 Blood pressure diastolic 72 mm Hg 025 Heart Rate 78 /min 02/13/2025 Height 68 in 02/13/2025 BMI 25.88 kg/m2 02/13/2025 Encounters Encounter Location Date Provider Diagnosis [place] [facility] [address] [place] [id number] 02/13/2025 Mala Fuller Acute pain of right wrist M25.531 Assessments Encounter Date Diagnosis (ICD Code) Assessment Notes Treatment Notes Treatment Clinical Notes Section Notes 02/13/2025 Acute pain of right wrist (ICD-10 - M25.531) will continue to stay off of work; to continue with wrist splint; will do CT Plan Of Treatment Treatment Notes Assessment Notes Acute pain of right wrist will continue to stay off of work; to continue with wrist splint; will do CT Pending Test Test Name Order Date CT Scan : Wrist, right, without contrast 02/13/2025 Next Appt Details Follow Up: will report test results, Reason: Progress Notes * Cora DHILLONDOB:[birth year] (54 yo F)Acc No.[id number]:02/13/2025 Progress Notes Patient: Cora ROWLEY Provider: KALLI Yan :1970 A ge:54 Y S ex:Female Date:02/13/2025 Address:[facility] [address], [place], [id number] Pcp:Heriberto Mayen Subjective: * Chief Complaints: * 1 . F/U on wrist. 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 54 year old female presents with c/o fall P t here for f/u on her wrist. Pt fell 01/22. Pt states she is still having pain and can not use it for working. Pt states she wants to see if she can get into some PT. * ROS: D ERMATOLOGY: no R christina. [...] 30 minutes before sleep Orally daily , Taking Wrist Splint/Cock-Up/Right L - Miscellaneous as directed , Medication List reviewed and reconciled with the patient * Allergies: N .K.D.A. Objective: * Vitals: W t: 170.2, Temp: 97.9, BP: 128/72, HR: 78, Nurse: sage, Ht: 68, BMI:25.88. * Examination: G eneral Examination: General Appearance: N AD, appears healthy, alert, pleasant, well nourished and hydrated. W rist / Hand: Wrist/Hand: r ight. I nspection: n o swelling, redness or ecchymosis. R danielle of motion: r estricted, painful movements. P alpation: t enderness on scaphoid bone. Assessment: * Assessment: 1. A cute pain of right wrist - M25.531 (Primary) S pecify :landed on right wrist with a fall Plan: * Treatment: Notes: will continue to stay off of work; to continue with wrist splint; will do CT?? * Follow Up: w ill report test results * Images: Billing Information: * Visit Code: 40546 Office Visit, Est Pt., Level 3. * Procedure Codes: * Electronic signature of Lis Fuller APRN on 02/16/2025 at 06:52 AM EST Sign off status: Pending * Provider: KALLI Yan Date: 04/16/2024 Generated for Ruddy Dueñas/Errol on: 04/19/2024 06:52 AM EST History and Physical Notes * HPI (History of Present Illness) Category Sub-Category Detail Notes Category Not es Wrist/Hand fall Pt here for f/u on her wrist. Pt fell 01/22. Pt states she is still having pain and can not use it for working. Pt states she wants to see if she can get into some PT Examination Category Sub-Category Detail Notes Category Not es General Examination General Appearance: NAD, shell ears healthy, alert, pleasant, well nourished and hydrated Wrist / Hand Inspection: no swelling, red ness or ecchymosis Wrist/Hand: right Range of motion: restricted, painful movements Palpation: tenderness on scapho id bone
--- OUTSIDE RECORDS SUMMARY | 2025-02-16 06:52 | XMS_ITS | Encounter Summary ---
[facility] Address [address] [place] [address] Care Team Providers Care Packager Name Role Phone Heriberto Mayen MD Primary Care Provider [phone] Encounter Details Date Type Department Care Team (Late st Contact Info) Description 08/06/2021 Telephone [facility] [address] [place] [address] Sury Youssef RN Social History [...] on filedocumented in this encounter Care Teams Packager Relationship Specialty Start Date End Date Heriberto Mayen MD [address] [place] [id number] PCP - General Family Medicine 05/17/19 documented as of this encounter
--- OUTSIDE RECORDS SUMMARY | 2025-02-16 06:53 | XMS_ITS | Patient Health Record ---
Author Organization [facility] [address] [place] [phone] Care Team Providers Care Probation Manager Name Role Phone Heriberto Mayen Primary Care Provider [phone] Mala Fuller Unavailable [phone] UlisesTiana molina Unavailable [phone] Allergies No Known Allergies Results Component Value Reference Range Notes X ray : Wrist, right Reviewed date:01/24/2025 12:02:42 PM Interpretation: Performing Lab: Notes/Report: P-Vitamin D 25-Hydroxy Reviewed date:09/22/2024 03:14:03 PM Interpretation:Normal Performing Lab: Notes/Report: Test performed by [facility] [address] [place] [address] , [facility], [place] [address] Rafael Lyons MD, Convalescent Sitter CLIA: [id number] Vitamin D 25-Hydroxy 33.7 30.0-100.0 ng/mL Interpretation of Vitamin D 25 OH: < 20 ng/mL - Deficiency 20 - 29 ng/mL - Insufficiency 30 - 100 ng/mL - Sufficiency > 100 ng/mL - Super-therapeutic- toxicity may occur above this level. Clinical correlation required. P-TSH reflex to FT4 Reviewed date:09/22/2024 03:13:27 PM Interpretation:Normal Performing Lab: Notes/Report: Test performed by [facility] [address] [place], [place] [address] [address], [address], [place] [address] Rafael Lyons MD, Convalescent Sitter CLIA: [id number] TSH reflex to FT4 2.69 0.43-5.25 mU/L P-Magnesium Reviewed date:09/22/2024 03:14:12 PM Interpretation:Normal Performing Lab: Notes/Report: Test performed by [facility] [address] [place] [address] , [address], [place] [address] Rafael Lyons MD, Convalescent Sitter CLIA: [id number] Magnesium 2.1 1.6-2.4 mg/dL P-Comprehensive Metabolic Pa chase (CMP) Reviewed date:09/22/2024 03:13:37 PM Interpretation:Normal Performing Lab: Notes/Report: Test performed by [facility] [address] , [address], [place] [address] Rafael Lyons MD, Convalescent Sitter CLIA: [id number] Sodium 141 135-145 mmol/L Potassium 4.4 3.5-5.3 [...] Interpretation:Normal Performing Lab: Notes/Report: Test performed by [facility] [address] [place] [address] , [address], [place] [address] Rafael Lyons MD, Convalescent Sitter CLIA: [id number] Vitamin B12 045 121-2937 pg/mL CBC Venipuncture (in house) Reviewed date:09/22/2024 [...] - 38 platlet 220 100 - 400 Medications Medication SIG (Take, [...] Vaccine Route Administration Date Status Comme nts COVID 19 Pfizer Unknown 06/09/2020 Administered COVID 19 Pfizer Unknown 06/30/2020 Administered COVID 19 Pfizer Unknown 02/15/2021 Administered Fluzone Intradermal Quad private(18-64yrs) IM Intramuscular 12/12/2015 Administered Fluzone PF Quad (6-35 months) Unknown 02/04/2019 Administered Fluzone PF Quad (6-35 months) Unknown 12/30/2019 Administered Fluzone PF Quad (6-35 months) Unknown 01/07/2021 Administered Fluzone PF Quad (6-35 months) Unknown 02/05/2022 Administered Fluzone Quad (6months&older) Unknown 02/03/2018 Administered Fluzone Quad (6months&older) IM Intramuscular 04/06/2023 Administered Problems Problem Type SNOMED Code ICD Code Onset Dates Problem Status W/U Status Risk Notes Problem Abnormal mammogram (025388894) Abnormal mammogram (R92.8) Active confirmed Problem Mixed anxiety and depressive disorder (719259079) Depression with anxiety (F41.8) Active confirmed Problem Mammography abnormal (217522767) Abnormal mammogram of left breast (R92.8) Active confirmed Problem COPD - Chronic obstructive pulmonary disease (20005242) Chronic obstructive pulmonary disease, unspecified COPD type (J44.9) Active confirmed Problem SI - Stress incontinence (00031381) Stress incontinence (N39.3) Active confirmed Problem Menopause (275928885) Perimenopausal symptoms (N95.1) Active confirmed Problem Chronic rhinitis (11204156) Rhinitis, unspecified type (J31.0) Active confirmed Problem Menopause (754584765) Post menopausal syndrome (N95.1) Active confirmed Problem Seasonal allergic rhinitis (661656957) Seasonal allergic rhinitis, unspecified trigger (J30.2) Active confirmed Problem History of bilateral mastectomy (situation) (905565190) S/P mastectomy, bilateral (Z90.13) Active confirmed Problem Chronic insomnia (593690930) Chronic insomnia (F51.04) Active confirmed Vital Signs Heart Rate 78 /min 02/13/2025 Blood pressure diastolic 72 mm Hg 02/13/2025 Height 68 in 02/13/2025 Blood pressure systolic 128 mm Hg 02/13/2025 Weight 170.2 lbs 02/13/2025 BMI 25.88 kg/m2 02/13/2025 Encounters Encounter Location Date Provider Diagnosis [facility] [address] [place] [address] [place] [id number] 09/21/2024 Tiana Montgomerytracy Other fatigue R53.83 ; Dizziness R42 ; Chronic insomnia F51.04 ; Vitamin B12 deficiency E53.8 and BMI 25.0-25.9,adult Z68.25 [facility] [address] [place] [address] [place] [id number] 01/23/2025 Mala Fuller Acute pain of right wrist M25.531 and Closed fracture of distal end of right radius, unspecified fracture morphology, initial encounter S52.501A [facility] [address] [place] [address] [place] [id number] 02/13/2025 Mala Fuller Acute pain of right wrist M25.531 [facility] [address] [place] [address] [place] [id number] 10/10/2024 Heriberto Mayen [facility] [address] [place] [address] [place] [id number] 01/31/2025 Mala Fuller Assessments Encounter Date Diagnosis (ICD Code) Assessment Notes Treatment Notes Treatment Clinical Notes Section Notes 09/21/2024 Dizziness (ICD-10 - R42) 09/21/2024 Other fatigue (ICD-10 - R53.83) 01/23/2025 Closed fracture of distal end of right radius, unspecified fracture morphology, initial encounter (ICD-10 - S52.501A) x ray reviewed with Dr. Mayen; also reviewed with pt; will wear wrist splint all of the time except to shower; NSAIDS, ice and elevate; FU x ray and visit in 4 weeks 01/23/2025 Acute pain of right wrist (ICD-10 - M25.531) 02/13/2025 Acute pain of right wrist (ICD-10 - M25.531) will continue to stay off of work; to continue with wrist splint; will do CT 09/21/2024 Chronic insomnia (ICD-10 - F51.04) 09/21/2024 Vitamin B12 deficiency (ICD-10 - E53.8) 09/21/2024 BMI 25.0-25.9,adult (ICD-10 - Z68.25) Plan Of Treatment Pending Test Test Name Order Date CT Scan : Wrist, right, without contrast 02/13/2025 Future Test Test Name Order Date X ray : Wrist, right 02/13/2025 Insurance Providers Payer Name Payer Address Payer Phone Subscriber Number Group Number Insured Name Patient Relationship to Insured Coverage Start Date Coverage End Date [employer] [address] [place] [phone] [id number] Cora Dhillon Self - patient is the [...]
--- OUTSIDE RECORDS SUMMARY | 2025-02-16 06:53 | XMS_ITS | Clinical Summary ---
[facility] [address] [place] [address] Care Team Providers Care Corporate Secretary Name Role Phone Heriberto Mayen MD Primary Care Provider + [phone] Allergies No known active allergies Medications albuterol [...] 02/21/2021 Acti ve lidocaine 1% - EPINEPHrine 1:054360 (XYLOCAINE W/EPI) 1 %-1:013364 injection 20 mL 20 mL INFILTRATION Once [...] 01/17/2023 01/17/2021, 08/2019, 06/14/2019, Additional history exists INFLUENZA VACCINE 10/14/2024 02/04/2019 Medical Devices Implanted Type Area Woods Laborer Device Identifier Shelf Expiration Date Model / [...] the prone tomographic/stereotactic core biopsy table and scout sniper images were obtained. Due to their faint [...] of concern indicated by the patient. A ho-chunk marker is placed over a visible skin [...] of concern indicated by the patient. A ho-chunk marker is placed over a visible skin [...] or is breathing): Full Support Care Teams Corporate Secretary Relationship Specialty Start Date End Date Heriberto Mayen MD [facility] [address] [facility] [address] [place] [address] PCP - General Family Medicine 05/17/19
--- NOTE | 2025-02-16 06:57 | CT_ITS ---
FINAL REPORT TECHNIQUE: Thin section axial images were obtained of the right wrist with coronal and sagittal reconstructions. This study was performed with techniques to keep radiation doses as low as reasonably achievable, (ALARA). Individualized dose reduction techniques using automated exposure control or adjustment of mA and/or kV according to the patient's size were employed. CLINICAL HISTORY: ACUTE PAIN OF RIGHT WRIST AFTER FALL COMPARISON: None FINDINGS: There is a comminuted mildly impacted intra-articular fracture of the distal radius. The displaced fracture fragment is more evident over the dorsal aspect of the wrist. There is no significant positive or negative ulnar variance. Scapholunate joint space is preserved. There is a tiny avulsion distal to the ulnar styloid. IMPRESSION: Comminuted intra-articular fracture distal radial metaphysis. Reviewed, Interpreted and Dictated by Aubrey Carter MD Transcribed by Lucretia Molina Authenticated and [facility]
== END 2025-02-16 23:59 | disposition home or self-care (01) ==
PROVIDERS: PCP Family Medicine; Visit Provider Nurse Practitioner Family
DX: S52.571A Other intraarticular fracture of lower end of right radius, initial encounter for closed fracture (principal)
CPT/HCPCS: 73200